=== PATIENT | female | born 1985 | race Caucasian/White ===

== ENCOUNTER 2017-05-02 11:55 | Emergency (ER) | payer BC ==
[2017-05-02] MEDS ORDERED: LORazepam INJ* 2 MG/ML 1 ML VIAL IV PUSH ONE (12:32)
--- NOTE | 2017-05-02 12:43 | ED ---
Seizure - HPI Summary HPI Summary: Patient is an otherwise healthy 31-year-old female with a history of seizures and hypertension presenting to the ED today with a seizure at 9 AM. She was recently increased her dose of lamotrigine from 200 mg twice a day to 300 mg twice a day by her neurologist Dr. Robertson. She recalls the events prior to this seizure, does not recall immediately following. Seizure was witnessed and lasted up approximately 10-15 minutes. She did not hit her head, endorses biting her tongue, but no lesions are found during physical exam. Has been at bedside, stating he has never seen her like this postictally. She denies any other medications and states she is otherwise healthy. He endorses numbness and tingling in bilateral upper and lower extremities. Dr. Anderson called the ED to make us aware of patient this morning. Requested a lamotrigine level and an EEG. She is lethargic on arrival and slurring speech. Decreased motor strength in upper and lower extremities. - History Of Current Complaint Chief Complaint: EDSeizure Time Seen by Provider: 05/02/17 12:04 Hx Obtained From: Patient Onset/Duration: Sudden Onset Severity Of Seizure: Self-Limited Location Of Seizure: All Extremities Character: Other Aggravating Factor(s): Other - Increased recent dose of lamotrigine Alleviating Factor(s): Nothing Associated Signs And Symptoms: Impaired Speech Related History: Medication Compliant - Risk Factors SAH Risk Factors: Negative Meningitis Risk Factors: Negative SDH Risk Factor: Seizures - Allergies/Home Medications Allergies/Adverse Reactions: Allergies Allergy/AdvReac Type Severity Reaction Status Date / Time No Known Allergies Allergy Verified 01/10/12 18:13 Home Medications: Home Medications Lamotrigine (Blue) 05/02/17 [History] PMH/Surg Hx/FS Hx/Imm Hx Previously Healthy: Yes Endocrine/Hematology History: Denies: Hx Diabetes, Hx Thyroid Disease Cardiovascular History: Reports: Hx Hypertension - on labetalol Respiratory History: Denies: Hx Asthma, Hx Chronic Obstructive Pulmonary Disease (COPD) GI History: Denies: Hx Ulcer Psychiatric History: Reports: Hx Anxiety, Hx Depression - Immunization History Hx Pertussis Vaccination: No Immunizations Up to Date: Unable to Obtain/Confirm Infectious Disease History: No Infectious Disease History: Denies: Hx Hepatitis, Hx Human Immunodeficiency Virus (HIV), Traveled Outside the [place] in Last 30 Days - Social History Occupation: Employed Full-time Lives: With Family Alcohol Use: None Hx Substance Use: No Substance Use Type: Reports: None Hx Tobacco Use: No Smoking Status (MU): Never Smoked Tobacco Have You Smoked in the Last Year: No Review of Systems - ROS Summary Review of Systems Summary: Constitutional: The patient denies fever, SALOMON, sweats or chills. HEENT: Head: The patient denies headaches or dizziness. Eyes: The patient endorses blurry vision. The patient denies diplopia, eye pain, eye discharge, photophobia. Throat: The patient denies sore throats or hoarseness. Endorses biting her tongue, but denies bleeding or any obvious lesions. Cardiovascular: The patient denies chest pain, palpitations, syncope, night cramps, or orthostasis. Respiratory: The patient denies cough, sputum production, hemoptysis, dyspnea, wheezing. Gastrointestinal: The patient denies odynophagia, dysphagia, hematemesis, melenemesis. Denies abdominal pain, nausea or vomiting. Denies constipation or diarrhea. Muscles: The patient denies myalgia, strain. Weakness in upper and lower extremities. Joints: The patient denies arthralgia and/or arthritis. Neurologic: The patient denies headache or loss of consciousness. Endorses seizure. Dermatologic: The patient denies hyperpigmentation, rash, or photosensitivity. Constitutional: Negative Negative: Fever, Chills, Fatigue, Skin Diaphoresis Positive: Blurred Vision Negative: Palpitations, Chest Pain Negative: Shortness Of Breath, Cough Genitourinary: Negative Positive: no symptoms reported, see HPI Positive: Weakness, Paresthesia, Slurred Speech Positive: Anxious All Other Systems Reviewed And Are Negative: Yes Physical Exam - Summary Physical Exam Summary: Appearance: WDW, difficult to arouse, ill-appearing Skin: Soft dry skin, no lesions. Nailbeds pink with no cyanosis or clubbing. No petechia noted. Eyes: ALFONSO, EOMI, Conjunctiva pink with no redness or exudates. Mouth: Dentition without lesions. Dry mucosa Neck: Full range of motion. Palpable thyroid. Trachea at midline. No lymphadenopathy. Pulm: Chest symmetrical expansion. No deformities on posterior chest wall. Lungs clear to auscultation and percussion, without adventitious sounds. CV: No JVD. No deformities on anterior chest wall. Heart sounds. RRR. Normal S1 and single S2. No S3, S4, rubs, or murmurs. Carotids 2+ bilaterally without bruits. . exam not performed GI: Bowel sounds WNL in all 4 quadrants. No pain on deep palpation of all 4 quadrants. Musculoskeletal: Flexion and extension of neck without limitations. ROM WNL in all extremities. No deformities noted. Pulses +2 bilaterally. Neuro: Motor strength is 1/5 in upper and lower extremities bilaterally. Alert , but not oriented to time. Oriented to place and name. Pronator drift, graphesthesia not performed. Sensory function decreased in upper and lower extremities. Head rotation, shoulder elevation, tongue movements, muscle of facial expression and mastication not evaluated due to patient's state. Gait not observed. Coordination and strength not tested in upper and lower extremities. Psych: Logical, coherent Triage Information Reviewed: Yes Vital Signs On Initial Exam: Initial Vitals Temp Pulse Resp BP Pulse Ox 98.4 F 103 19 146/91 100 05/02/17 11:56 05/02/17 11:56 05/02/17 11:56 05/02/17 11:56 05/02/17 11:56 Vital Signs Reviewed: Yes Appearance: Positive: Well-Nourished, Ill-Appearing Skin: Positive: Skin Color Reflects Adequate Perfusion Head/Face: Positive: Normal Head/Face Inspection Eyes: Positive: EOMI, ALFONSO, Conjunctiva Clear Neck: Positive: Supple, Nontender, No Lymphadenopathy Respiratory/Lung Sounds: Positive: Clear to Auscultation, Breath Sounds Present Cardiovascular: Positive: Normal, RRR, Pulses are Symmetrical in both Upper and Lower Extremities Diagnostics - Vital Signs Vital Signs Temp Pulse Resp BP Pulse Ox 05/02/17 12:11 93 100 05/02/17 12:09 152/82 05/02/17 11:56 98.4 F 103 19 146/91 100 - Laboratory Result Diagrams: 05/02/17 12:58 05/02/17 12:58 Lab Statement: Any lab studies that have been ordered have been reviewed, and results considered in the medical decision making process. Course/Dx - Course Course Of Treatment: During the course of treatment, the patient is evaluated for post ictal activity. Discussed case with Dr. Feldman who agrees to come see patient. EEG ordered. Labs obtained including lamotrigine level. IV and fluids ordered. According to Dr. Anderson who is sent the patient in, is requesting EEG. EEG obtained and showed no abnormal findings. According to Dr. Feldman, patient is to remain on lamotrigine 300 mg twice a day and follow- up with Dr. Robertson as soon as possible. She is feeling much improved on discharge and voices no concerns at this time. - Diagnoses Provider Diagnoses: Epileptic seizure Is Visit Related: No - Physician Notifications Discussed Care of Patient With: Bill Feldman - patient agrees to come see patient Instructed by Provider To: Have Pt Call For Appt. - Dr. Robertson Discharge - Discharge Plan Condition: Stable Disposition: HOME Patient Education Materials: Lamotrigine (By mouth), Recurrent Seizures in Adults (ED) Referrals: Valeria Merlos MD [Primary Care Provider] - Albina Flynn MD [Medical Doctor] - 1 Week Additional Instructions: please follow up with Dr. Marcelo Feldman recommends you remain on the lamotrigine 300 mg twice daily until follow-up
[2017-05-02] MEDS ORDERED: NS 0.9% 1000 ML* 1,000 ML IV ONE (12:49)
[2017-05-02 13:10] LABS: ABS Basophils 0.1 10^3/ul (0-0.2); ABS Eosinophils 0.2 10^3/ul (0-0.6); ABS Lymphocytes 1.8 10^3/ul (1.0-4.8); ABS Monocytes 0.7 10^3/ul (0-0.8); ABS Neutrophils 5.5 10^3/ul (1.5-7.7); ABS Nucleated RBC 0 10^3/ul; Eosinophil % 2.3 % (0-6); Hematocrit 37 % (35-47); Hemoglobin 11.8 g/dl (12.0-16.0); Lymphocyte % 21.4 % (25-47); Mean Corpuscular HGB Conc 32 g/dl (31-36); Mean Corpuscular Hemoglobin 28 pg (27-31); Mean Corpuscular Volume 86 fL (80-97); Mean Platelet Volume 7 um3 (7.4-10.4); Nucleated Red Blood Cells % 0; Platelet Count 413 10^3/ul (150-450); Red Blood Count 4.25 10^6/ul (4.0-5.4); Red Cell Distribution Width 15 % (10.5-15); White Blood Count 8.2 10^3/ul (3.5-10.8)
[2017-05-02 13:24] LABS: EGFR Non-African American 66.1 (>60)
[2017-05-02 15:41] VITALS: BP 114/70
--- NOTE | 2017-05-02 22:56 | CONS ---
NEUROLOGY CONSULTATION: DATE OF CONSULT: 05/02/17 REFERRING PROVIDER: IZZY Owen LOCATION: She is in the emergency room. CHIEF COMPLAINT: Seizures. HISTORY OF PRESENT ILLNESS: Cydney Landa is a 31-year-old woman with a diagnosis of epilepsy who is followed by Dr. Albina Flynn in our office practice. She had a seizure 2 weeks ago leading to an increase in her lamotrigine dose gradually from 200 mg b.i.d. to 300 mg b.i.d. She just got the 300 mg b.i.d. this past Saturday. She had another seizure this past Saturday and then another episode today. She is accompanied by her . 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 The next thing she knew she was at work and was very confused. She was told that she had had a convulsion. She was brought in to the emergency room. They called our office and Dr. Kandi Anderson was covering. She just had an EEG a little while ago, which I reviewed and this is a normal EEG. She just increased lamotrigine to 300 mg twice per day 3 days prior to this emergency room visit. They had a blood level drawn on Saturday, but I do not have the results of that. Her blood level prior to that was close to 3 or so. She has been noncompliant in the past , but at least for the last several months her was making sure that she has been compliant and that she has not missed any doses. She started having seizures when she was a teenager. She was on Depakote for a while and had some EEG she says were inconclusive and ultimately was taken off anticonvulsants. She reported her history of epilepsy when she was admitted to deliver her youngest child on 09/14/13. Because of that new history, her OB consulted Dr. Flynn who saw her on 09/14/13. She had an EEG, which revealed a generalized burst of slow activity in the theta and delta range without any sharp or spike activity. She was on Keppra for a while, but had significant mood problems and was switched to lamotrigine this past year. She says since her teenage years, she has not got a year without seizures. She said that she was not fully honest with Dr. 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 She says the longest that she goes without seizures is perhaps 3 to 6 months. Her says that she just will suddenly drop. She will exhibit flexion of her arms and generalized shaking. She states she is usually back to normal within 20 minutes after an episode. With the episode today, she did not bite her tongue, but she felt sore all over. She did not lose control of her bladder. PAST MEDICAL HISTORY: Notable for Cardiology evaluation for palpitations and possibly of a "leaky valve." She has otherwise been in good health. MEDICATIONS: At home consists of: 1. Lamotrigine 300 mg b.i.d., just increased a few days ago. 2. Vitamins. 3. Labetalol 100 mg p.o. b.i.d. FAMILY HISTORY: Negative for epilepsy. REVIEW OF SYSTEMS: Negative for recent fevers, cough, sore throats, intestinal problems. She gets headaches after her seizures and has one today, but usually otherwise does not get headaches routinely. Other than lamotrigine, there have been no recent changes in medications. She was evaluated for palpitations, but other than that no history of cardiac disease, no history of diabetes, psychiatric, other endocrine, GI or disease. No recent weight loss to speak of. PHYSICAL EXAMINATION: She is well nourished and well hydrated. Blood pressure is 140/100, heart rate in the 80s and regular, temperature 98.4, respiratory rate is 19, oxygen saturation 100% on room air. Lungs are clear. Heart is in a regular rate and rhythm without murmurs. There are no cervical bruits. Oral mucosa is moist and there is no oral or tongue trauma. Neurological exam; pupils, fundi, and eye movements are normal. Visual atkins are full to confrontation. Facial musculature is symmetric. Tongue protrudes in the midline and speech is clear. Hearing is intact. Facial sensation is reported as subjective decreased light touch on the right side of the face. Pin discrimination is said to be decreased in the right as well. On sensory exam of the limbs, she reports decreased light touch and pin subjectively in the left side of the arm and leg. Sensory thresholds seem intact. Motor exam reveals generalized asthenia, but normal strength and tone in the limbs proximally and distally. Reflexes are hypoactive, but present and symmetric. Plantars are flexor bilaterally. Finger to nose is slow, but accurate bilaterally. There is no tremor. Finger taps are slow bilaterally, but otherwise normal. She seems a bit tired, but is oriented and able to give a good history other than for the time around the seizure. Language is fluent. LABORATORY DATA: Includes a normal chemistry profile today other than a nonfasting glucose of 105. Creatine kinase today is 87. CBC today is normal other than a borderline low hemoglobin of 11.8. IMPRESSION AND PLAN: Impression is apparently medically refractory epilepsy, psychogenic seizures remains a possibility. It sounds like her EEG was not definitive. She just had her lamotrigine increased on Saturday and had a blood level drawn today, but it will not come back today. I do not recommend any changes today, but she may need either a second anticonvulsant or further diagnostic studies. For now, she will continue lamotrigine 300 mg twice per day. She does not drive. I will try to speak with Dr. Flynn and have her contact the patient regarding the next step. [id number]/[facility] #: [id number] DMITRY
--- NOTE | 2017-05-03 11:17 | EEG ---
CC: Dr. Flynn ELECTROENCEPHALOGRAPHY: DATE OF STUDY: 05/02/17 LOCATION: She is in emergency room bed 19 REFERRING PROVIDER: Bill Feldman MD. CHIEF COMPLAINT: Seizure today, history of epilepsy since teens. MEDICATIONS: Include, 1. Lamotrigine 300 mg b.i.d. 2. Lorazepam. REPORT: This 16-channel EEG is remarkable for background rhythms at the onset of tracing consistent of a well formed alpha rhythm in the posterior derivations at about 9 to 9-1/2 cycles per second, whi ch is symmetric and suppressed by eye opening. Moderate voltage beta rhythms are seen bifrontally. The patient is awake. Eye movement artifact is fairly frequent and occasional muscle artifact is not ed as well. Activation procedures are not attempted. The patient is not drowsy or asleep during the recording. There are no focal, lateralized, or epileptiform abnormalities. INTERPRETATION: Normal awake EEG. [id number]/[facility] #: [id number]
== END 2017-05-02 15:42 | disposition home or self-care (01) ==
LOC: ED 11:55
DX: G40.909 Epilepsy, unspecified, not intractable, without status epilepticus (principal); I10 Essential (primary) hypertension
CPT/HCPCS: 36415; 80053; 80175; 80307; 82550; 85025; 85652; 95816; 96360; 99284

== ENCOUNTER 2018-01-30 01:07 | Observation (INO) | payer BC ==
[2018-01-30] MEDS ORDERED: Ketorolac INJ* 30 MG/ML 1 ML VIAL IV PUSH ONE (01:58)
[2018-01-30] MEDS ORDERED: NS 0.9% 1000 ML* 1,000 ML IV ONE (01:58)
[2018-01-30] MEDS ORDERED: Albuterol/Ipratropium NEB.SOL* Albuterol 2.5 MG/Ipratropium 0.5 MG 3 ML INH ONE (01:59)
[2018-01-30] MEDS ORDERED: Albuterol 2.5 MG/3 ML NEB.SOL* (0.083%) INH ONE (01:59)
[2018-01-30 02:43] LABS: ABS Basophils 0.1 10^3/ul (0-0.2); ABS Eosinophils 0.2 10^3/ul (0-0.6); ABS Lymphocytes 1.2 10^3/ul (1.0-4.8); ABS Monocytes 0.3 10^3/ul (0-0.8); ABS Neutrophils 12.1 10^3/ul (1.5-7.7); ABS Nucleated RBC 0 10^3/ul; Eosinophil % 1.6 % (0-6); Hematocrit 38 % (35-47); Hemoglobin 12.3 g/dl (12.0-16.0); Lymphocyte % 8.9 % (25-47); Mean Corpuscular HGB Conc 32 g/dl (31-36); Mean Corpuscular Hemoglobin 28 pg (27-31); Mean Corpuscular Volume 86 fL (80-97); Mean Platelet Volume 6.9 fL (7.4-10.4); Nucleated Red Blood Cells % 0; Platelet Count 500 10^3/ul (150-450); Red Blood Count 4.44 10^6/ul (4.00-5.40); Red Cell Distribution Width 15 % (10.5-15)
[2018-01-30 02:51] LABS: INR 0.98 (0.77-1.02)
[2018-01-30 03:00] LABS: EGFR Non-African American 67.3 (>60)
[2018-01-30] MEDS ORDERED: Albuterol 2.5 MG/3 ML NEB.SOL* (0.083%) INH PRN ×2 (03:32→10:30)
[2018-01-30] MEDS ORDERED: ALPRAZolam TAB* 0.5 MG PO PRN (03:46)
[2018-01-30] MEDS ORDERED: Ibuprofen TAB* 200 MG PO PRN (03:46)
[2018-01-30] MEDS ORDERED: predniSONE TAB* 20 MG PO ONE (03:50)
--- NOTE | 2018-01-30 03:51 | ADMNOTE ---
Subjective Date of Service: 01/30/18 Interval History: code status full this is a h/p for admission hpi this is a 32 yr old wf with ? prob asthma hx but never gets diagnosed prior was brought in by mom due to her overall respiratory status. she was dxd with pna 3 weeks ago was treated with z pack and steroid ---> felt better but has been getting worse for the past weekend finally decided to seek medical help at urgent yesterday ---> d/cd home and she drove herself home ---> mom saw her and decided to bring her in. she was found to have low grade temp ( did not measure at [facility] ) increased chang and diffuse wheezing for two days . 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 + asthma Review of Systems - Measurements Intake and Output: Intake and Output Last 24 Hours 01/27/18 01/28/18 01/29/18 01/30/18 06:59 06:59 06:59 06:59 Intake Total 1000 Balance 1000 Weight 235 lb Intake: IV Fluids 1000 pertinent as per hpi Objective Active Medications: Albuterol (Ventolin 2.5 Mg/3 Ml Neb.Ayana*) 2.5 mg INH [id number] AWAKE PRN PRN Reason: sob/wheezing Alprazolam (Xanax Tab*) 1 mg PO DAILY PRN PRN Reason: ANXIETY Sodium Chloride (Ns 0.9% 1000 Ml*) 1,000 mls @ 100 mls/hr IV PER RATE TOMMY Ibuprofen (Advil Tab*) 400 mg PO Q6HR PRN PRN Reason: PAIN Levofloxacin (Levaquin Tab*) 750 mg PO Q24H TOMMY Non-Formulary Medication (Labetalol Hcl) 100 mg PO BID TOMMY Non-Formulary Medication (Lamotrigine (Blue)) 600 mg PO DAILY TOMMY Prednisone (Deltasone Tab*) 40 mg PO ONCE ONE Stop: 01/30/18 03:51 Vital Signs - 8 hr 01/30/18 01/30/1801/30/18 01:09 02:08 02:10 Temperature 97.9 F Pulse Rate 115 114 104 Respiratory 20 20 Rate Blood Pressure 151/91 146/91 (mmHg) O2 Sat by Pulse 92 94 97 Oximetry 01/30/18 01/30/18 01/30/18 02:15 02:29 02:35 Temperature Pulse Rate 102 Respiratory 20 Rate Blood Pressure 111/73 (mmHg) O2 Sat by Pulse 95 91 Oximetry 01/30/18 01/30/18 03:00 03:05 Temperature Pulse Rate 103 111 Respiratory Rate Blood Pressure 139/76 (mmHg) O2 Sat by Pulse 90 92 Oximetry Oxygen Devices in Use Now: Nasal Cannula Appearance: nad Eyes: No Scleral Icterus, PERRLA Ears/Nose/Mouth/Throat: NL Teeth, Lips, Gums, Clear Oropharnyx, Mucous Membranes Moist Neck: NL Appearance and Movements; NL JVP, Trachea Midline, No Thyroid Enlargement, Masses Respiratory: Symmetrical Chest Expansion and Respiratory Effort, - - diffuse wheezing Cardiovascular: NL Sounds; No Murmurs; No JVD, RRR Abdominal: NL Sounds; No Tenderness; No Distention Extremities: No Edema, No Clubbing, Cyanosis Skin: No Rash or Ulcers Neurological: Alert and Oriented x 3, NL Sensation, NL Muscle Strength and Tone Result Diagrams: 01/30/18 05:44 01/30/18 05:44 Microbiology and Other Data: Microbiology 01/30/18 02:30 Influenza Types A,B Antigen - Final Nasal Specimen received for Influenza A/B Molecular testing Assess/Plan/Problems-Billing Assessment: this is a 32 yr old wf with prob hx of asthma fhx of asthma not feeling well for two days with increased sob/coughing/sputum production. pt was recently treated 3 weeks ago for pna with 5 days hx z pack and steroid taper. initial chest x ray on 01/29 showed persistant rll patchy opacity - Patient Problems (1) RLL pneumonia Status: Acute Code(s): J18.1 - LOBAR PNEUMONIA, UNSPECIFIED ORGANISM SNOMED Code(s): 850063289 Comment: A. Started PO levaquin as an outpatient. Finished zpack Plan Continue 3 more days for total of 7 Levaquin Change to scheduled Albuterol, and prn Duonebs and Albuterol Prednisone 40 mg PO QD (2) Acute respiratory distress Status: Acute Code(s): R06.03 - ACUTE RESPIRATORY DISTRESS SNOMED Code(s): 971948242 Comment: due to rll pna despite treatment done two weeks ago but was only treated with z pack for pna also complicated with prob ashtma attack never was dxd but mom + asthma abx resp tx oxygen support (3) Asthma exacerbation Status: Acute Code(s): J45.901 - UNSPECIFIED ASTHMA WITH (ACUTE) EXACERBATION SNOMED Code(s): 506839884 Comment: A. Exercise induced as a child. Plan As above Will also get CTA to rule out any other pathology Consider pulmonology consult (4) SIRS (systemic inflammatory response syndrome) Status: Acute Code(s): R65.10 - SIRS OF NON-INFECTIOUS ORIGIN W/O ACUTE ORGAN DYSFUNCTION SNOMED Code(s): 894781275 Comment: no abx was given despite chest x ray showed pna started with levauqin ck sputum study (5) Thrombocytosis Status: Acute Comment: not sure it is reactive due to pna and acute ashtma excerbation and hypoxia vs primary no thrombotic symptoms at this point moniter plat count (6) Tachycardia Status: Acute Code(s): R00.0 - TACHYCARDIA, UNSPECIFIED SNOMED Code(s): 1032735 Comment: this is could be due to sirs and albuterol tx will use xopenex ivf tele (7) Lactic acidosis Status: Acute Code(s): E87.2 - ACIDOSIS SNOMED Code(s): 24552816 Comment: this is related to pna will recycle her lactic q 4 until normal
--- NOTE | 2018-01-30 04:15 | ED ---
Shortness of Breath - HPI Summary HPI Summary: A 32 y/o female presents to the ED with a CC PNA since 01/20/2018. She was seen at [facility]. She states that she "can't breathe" and that she has been taking Prednisone since 01/20/2018 along with using a nebulizer and inhaler. She also c/o N/V and an intermittent fever. She states that her abx have recently changed. - History of Current Complaint Chief Complaint: EDShortnessOfBreath Time Seen by Provider: 01/30/18 01:49 Hx Obtained From: Patient Onset/Duration: Sudden Onset, Lasting Days, Still Present Timing: Constant - Allergy/Home Medications Allergies/Adverse Reactions: Allergies Allergy/AdvReac Type Severity Reaction Status Date / Time No Known Allergies Allergy Verified 01/30/18 01:13 Home Medications: Home Medications ALPRAZolam TAB* [Xanax TAB*] 1 mg PO DAILY PRN 01/30/18 [History Confirmed 01/30] PMH/Surg Hx/FS Hx/Imm Hx Endocrine/Hematology History: Denies: Hx Diabetes, Hx Thyroid Disease Cardiovascular History: Reports: Hx Hypertension - on labetalol Denies: Hx Pacemaker/ICD Respiratory History: Denies: Hx Asthma, Hx Chronic Obstructive Pulmonary Disease (COPD) GI History: Denies: Hx Ulcer History: Denies: Hx Renal Disease Sensory History: Denies: Hx Hearing Aid Psychiatric History: Reports: Hx Anxiety, Hx Depression Denies: Hx Panic Disorder - Surgical History Surgery Procedure, Year, and Place: GALLBLADDER;. CSECTION; Infectious Disease History: No Infectious Disease History: Denies: Hx Hepatitis, Hx Human Immunodeficiency Virus (HIV), Traveled Outside the [place] in Last 30 Days - Family History Known Family History: Negative: Blood Disorder - Social History Alcohol Use: None Hx Substance Use: No Substance Use Type: Reports: None Hx Tobacco Use: No Smoking Status (MU): Never Smoked Tobacco Have You Smoked in the Last Year: No Review of Systems Positive: Fever Respiratory: Other - Pos: PNA, "can't breathe" Positive: Shortness Of Breath Positive: Vomiting, Nausea All Other Systems Reviewed And Are Negative: Yes Physical Exam - Summary Physical Exam Summary: VITAL SIGNS: Reviewed. GENERAL: Patient is a well-developed and nourished FEMALE who is lying comfortable in the stretcher. Patient is not in any acute respiratory distress. HEAD AND FACE: No signs of trauma. No ecchymosis, hematomas or skull depressions. No sinus tenderness. EYES: PERRLA, EOMI x 2, No injected conjunctiva, no nystagmus. EARS: Hearing grossly intact. Ear canals and tympanic membranes are within normal limits. MOUTH: Oropharynx within normal limits. NECK: Supple, trachea is midline, no adenopathy, no JVD, no carotid bruit, no c- spine tenderness, neck with full ROM. CHEST: Symmetric, no tenderness at palpation LUNGS: Decreased breath sounds bilaterally, bilateral basal rales CVS: Regular rate and rhythm, S1 and S2 present, no murmurs or gallops appreciated. ABDOMEN: Soft, non-tender. No signs of distention. No rebound no guarding, and no masses palpated. Bowel sounds are normal. EXTREMITIES: FROM in all major joints, no edema, no cyanosis or clubbing. NEURO: Alert and oriented x 3. No acute neurological deficits. Speech is normal and follows commands. SKIN: Dry and warm Triage Information Reviewed: Yes Vital Signs On Initial Exam: Initial Vitals Temp Pulse Resp BP Pulse Ox 97.9 F 115 20 151/91 92 01/30/18 01:09 01/30/18 01:09 01/30/18 01:09 01/30/18 01:09 01/30/18 01:09 Vital Signs Reviewed: Yes Diagnostics - Vital Signs Vital Signs Temp Pulse Resp BP Pulse Ox 01/30/18 03:05 111 139/76 92 01/30/18 03:00 103 90 01/30/18 02:35 111/73 01/30/18 02:29 91 01/30/18 02:15 102 20 95 01/30/18 02:10 104 20 97 01/30/18 02:08 114 146/91 94 01/30/18 01:09 97.9 F 115 20 151/91 92 - Laboratory Lab Results: Lab Results 01/30/18 01/30/18 01/30/18 Range/Units 02:15 02:15 02:15 WBC 14.0 H (3.5-10.8) 10^3/ul RBC 4.44 (4.00-5.40) 10^6/ul Hgb 12.3 (12.0-16.0) g/dl Hct 38 (35-47) % MCV 86 (80-97) fL MCH 28 (27-31) pg MCHC 32 (31-36) g/dl RDW 15 (10.5-15) % Plt Count 500 H (150-450) 10^3/ul MPV 6.9 L (7.4-10.4) fL Neut % (Auto) 86.4 H (38-83) % Lymph % (Auto) 8.9 L (25-47) % [place] % (Auto) 2.4 (0-7) % Eos % (Auto) 1.6 (0-6) % Baso % (Auto) 0.7 (0-2) % Absolute Neuts (auto) 12.1 H (1.5-7.7) 10^3/ul Absolute Lymphs (auto) 1.2 (1.0-4.8) 10^3/ul Absolute Monos (auto) 0.3 (0-0.8) 10^3/ul Absolute Eos (auto) 0.2 (0-0.6) 10^3/ul Absolute Basos (auto) 0.1 (0-0.2) 10^3/ul Absolute Nucleated RBC 0 10^3/ul Nucleated RBC % 0 INR (Anticoag Therapy) 0.98 (0.77-1.02) APTT 31.1 (26.0-36.3) seconds Sodium 138 (135-145) mmol/L Potassium 4.0 (3.5-5.0) mmol/L Chloride 105 (101-111) mmol/L Carbon Dioxide 23 (22-32) mmol/L Anion Gap 10 (2-11) mmol/L BUN 11 (6-24) mg/dL Creatinine 0.95 (0.51-0.95) mg/dL Est GFR ( Amer) 81.5 (>60) Est GFR (Non-Af Amer) 67.3 (>60) BUN/Creatinine Ratio 11.6 (8-20) Glucose 128 H (70-100) mg/dL Lactic Acid (0.5-2.0) mmol/L Calcium 9.5 (8.6-10.3) mg/dL Total Bilirubin 0.30 (0.2-1.0) mg/dL AST 15 (13-39) U/L ALT 15 (7-52) U/L Alkaline Phosphatase 111 H (34-104) U/L C-Reactive Protein 14.56 H (<8.01) mg/L Total Protein 7.8 (6.4-8.9) g/dL Albumin 4.4 (3.2-5.2) g/dL Globulin 3.4 (2-4) g/dL Albumin/Globulin Ratio 1.3 (1-3) Beta HCG, Quant < 0.60 mIU/mL Influenza A (Rapid) (Negative) Influenza B (Rapid) (Negative) 01/30/18 01/30/18 Range/Units 02:15 02:48 WBC (3.5-10.8) 10^3/ul RBC (4.00-5.40) 10^6/ul Hgb (12.0-16.0) g/dl Hct (35-47) % MCV (80-97) fL MCH (27-31) pg MCHC (31-36) g/dl RDW (10.5-15) % Plt Count (150-450) 10^3/ul MPV (7.4-10.4) fL Neut % (Auto) (38-83) % Lymph % (Auto) (25-47) % [place] % (Auto) (0-7) % Eos % (Auto) (0-6) % Baso % (Auto) (0-2) % Absolute Neuts (auto) (1.5-7.7) 10^3/ul Absolute Lymphs (auto) (1.0-4.8) 10^3/ul Absolute Monos (auto) (0-0.8) 10^3/ul Absolute Eos (auto) (0-0.6) 10^3/ul Absolute Basos (auto) (0-0.2) 10^3/ul Absolute Nucleated RBC 10^3/ul Nucleated RBC % INR (Anticoag Therapy) (0.77-1.02) APTT (26.0-36.3) seconds Sodium (135-145) mmol/L Potassium (3.5-5.0) mmol/L Chloride (101-111) mmol/L Carbon Dioxide (22-32) mmol/L Anion Gap (2-11) mmol/L BUN (6-24) mg/dL Creatinine (0.51-0.95) mg/dL Est GFR ( Amer) (>60) Est GFR (Non-Af Amer) (>60) BUN/Creatinine Ratio (8-20) Glucose (70-100) mg/dL Lactic Acid 1.9 (0.5-2.0) mmol/L Calcium (8.6-10.3) mg/dL Total Bilirubin (0.2-1.0) mg/dL AST (13-39) U/L ALT (7-52) U/L Alkaline Phosphatase (34-104) U/L C-Reactive Protein (<8.01) mg/L Total Protein (6.4-8.9) g/dL Albumin (3.2-5.2) g/dL Globulin (2-4) g/dL Albumin/Globulin Ratio (1-3) Beta HCG, Quant mIU/mL Influenza A (Rapid) Negative (Negative) Influenza B (Rapid) Negative (Negative) Result Diagrams: 01/30/18 05:44 01/30/18 05:44 Lab Statement: Any lab studies that have been ordered have been reviewed, and results considered in the medical decision making process. - Radiology CXR Radiology Interpretation Completed By: ED Physician - was taken at [facility], revealed bilateral basal infiltrate. Pending official report. Re-Evaluation - Re-Evaluation First Eval Re-Evaluation Time: 02:05 Change: Unchanged Comment: Discussed results of CXR. Course/Dx - Course Course Of Treatment: A 32 y/o female presents to the ED with a CC PNA since . Her PE revealed decreased breath sounds bilaterally and bilateral basal rales. Her CXR showed bilateral basal infiltrate. Dx: bilateral PNA. She will be admitted to Dr. Beckham, hospitalist. - Diagnoses Provider Diagnoses: Bilateral pneumonia - Physician Notifications Discussed Care of Patient With: Constanza Beckham Time Discussed With Above Provider: 03:00 Instructed by Provider To: Admit As Inpatient Discharge - Sign-Out/Discharge Documenting (check all that apply): Patient Departure - Admit - Discharge Plan Condition: Fair Disposition: ADMITTED TO [facility] - Billing Disposition and Condition Condition: FAIR Disposition: Admitted to [facility] - Attestation Statements Document Initiated by Scribe: Yes Documenting Scribe: Andrew Ventura Provider For Whom Scribe is Documenting (Include Credential): Sylvester Elfar, MD Scribe Attestation: I, Andrew Ventura, scribed for Sylvester Iraheta MD on 01/30/18 at 2358. Scribe Documentation Reviewed: Yes Provider Attestation: The documentation as recorded by the scribe, Andrew Ventura accurately reflects the service I personally performed and the decisions made by me, Sylvester Iraheta MD
[2018-01-30] MEDS: Levofloxacin TAB* 250 MG PO SCH (04:37)
[2018-01-30 05:59] LABS: ABS Basophils 0.1 10^3/ul (0-0.2); ABS Eosinophils 0 10^3/ul (0-0.6); ABS Lymphocytes 0.9 10^3/ul (1.0-4.8); ABS Monocytes 0.1 10^3/ul (0-0.8); ABS Nucleated RBC 0 10^3/ul; Eosinophil % 0.2 % (0-6); Hematocrit 35 % (35-47); Hemoglobin 11.2 g/dl (12.0-16.0); Lymphocyte % 6.8 % (25-47); Mean Corpuscular HGB Conc 32 g/dl (31-36); Mean Corpuscular Hemoglobin 27 pg (27-31); Mean Corpuscular Volume 86 fL (80-97); Mean Platelet Volume 6.9 fL (7.4-10.4); Nucleated Red Blood Cells % 0; Platelet Count 501 10^3/ul (150-450); Red Blood Count 4.08 10^6/ul (4.00-5.40); Red Cell Distribution Width 15 % (10.5-15); White Blood Count 13.1 10^3/ul (3.5-10.8)
[2018-01-30 06:19] LABS: EGFR Non-African American 79.8 (>60)
[2018-01-30] MEDS: NS 0.9% 1000 ML* 1,000 ML IV SCH ×2 (06:31→23:21)
[2018-01-30] MEDS ORDERED: Labetalol TAB* 100 MG PO SCH (09:00)
[2018-01-30] MEDS: predniSONE TAB* 10 MG PO SCH (09:07)
[2018-01-30] MEDS: lamoTRIgine TAB(*) 100 MG PO SCH ×2 (09:07→20:45)
[2018-01-30] MEDS ORDERED: Benzocaine/Menthol LOZ* 1 LOZENGE PO PRN (09:20)
[2018-01-30] MEDS ORDERED: Albuterol/Ipratropium NEB.SOL* Albuterol 2.5 MG/Ipratropium 0.5 MG 3 ML INH PRN (10:30)
[2018-01-30] MEDS: guaiFENesin ER TAB 600 MG PO SCH ×2 (10:36→20:46)
--- NOTE | 2018-01-30 10:44 | PN ---
Subjective Date of Service: 01/30/18 Interval History: Patient admitted last evening for SOB and cough. Completed a full zpack course and started Levaquin on 01/25. Was also on low dose prednisone as an outpatient prior to being admitted. Still very SOB with a dry cough. No Hx of smoking or second hand exposure. No environmental exposure Objective Active Medications: Albuterol (Ventolin 2.5 Mg/3 Ml Neb.Ayana*) 2.5 mg INH [id number] AWAKE TOMMY Albuterol (Ventolin 2.5 Mg/3 Ml Neb.Ayana*) 2.5 mg INH Q2H PRN PRN Reason: SOB/WHEEZING Albuterol/Ipratropium (Duoneb (Albuterol 2.5 Mg/Ipratropium 0.5 Mg)) 1 neb INH Q4H PRN PRN Reason: SOB/WHEEZING Alprazolam (Xanax Tab*) 1 mg PO DAILY PRN PRN Reason: ANXIETY Last Admin: 01/30/18 04:36 Dose: 1 mg Guaifenesin (Mucinex*) 600 mg PO BID [facility] Last Admin: 01/30/18 10:36 Dose: 600 mg Sodium Chloride (Ns 0.9% 1000 Ml*) 1,000 mls @ 100 mls/hr IV PER RATE [facility] Last Admin: 01/30/18 06:31 Dose: 100 mls/hr Ibuprofen (Advil Tab*) 400 mg PO Q6HR PRN PRN Reason: PAIN Lamotrigine (Lamictal Tab(*)) 300 mg PO BID [facility] Last Admin: 01/30/18 09:07 Dose: 300 mg Levofloxacin (Levaquin Tab*) 750 mg PO Q24H TOMMY Stop: 02/02/18 03:59 Last Admin: 01/30/18 04:37 Dose: 750 mg Prednisone (Deltasone Tab*) 40 mg PO DAILY [facility]; Taper Stop: 02/07/18 08:59 Last Admin: 01/30/18 09:07 Dose: 40 mg Throat Lozenges (Chloraseptic Sandi*) 1 sandi PO Q6H PRN PRN Reason: SORE THROAT Vital Signs - 8 hr 01/30/18 01/30/18 01/30/18 03:00 03:05 03:35 Temperature Pulse Rate 103 111 101 Respiratory Rate Blood Pressure 139/76 118/73 (mmHg) O2 Sat by Pulse 90 92 93 Oximetry 01/30/18 01/30/18 01/30/18 03:54 04:05 04:36 Temperature 98.1 F 97.7 F Pulse Rate 105 105 Respiratory 20 20 22 Rate Blood Pressure 139/76 137/78 (mmHg) O2 Sat by Pulse 93 92 Oximetry 01/30/18 01/30/18 05:30 09:28 Temperature 97.7 F Pulse Rate 105 Respiratory 18 Rate Blood Pressure 137/78 (mmHg) O2 Sat by Pulse 92 92 Oximetry Oxygen Devices in Use Now: Nasal Cannula Ears/Nose/Mouth/Throat: Mucous Membranes Moist Neck: Trachea Midline Respiratory: - - diminished breath sounds. B/L expiratory wheezing/rhonchorous breath sounds Cardiovascular: NL Sounds; No Murmurs; No JVD, RRR Abdominal: NL Sounds; No Tenderness; No Distention, No Hepatosplenomegaly Extremities: No Edema Neurological: Alert and Oriented x 3 Result Diagrams: 01/30/18 05:44 01/30/18 05:44 Additional Lab and Data: Lab Results 01/30/18 01/30/18 01/30/18 Range/Units 02:15 02:15 02:15 WBC 14.0 H (3.5-10.8) 10^3/ul RBC 4.44 (4.00-5.40) 10^6/ul Hgb 12.3 (12.0-16.0) g/dl Hct 38 (35-47) % MCV 86 (80-97) fL MCH 28 (27-31) pg MCHC 32 (31-36) g/dl RDW 15 (10.5-15) % Plt Count 500 H (150-450) 10^3/ul MPV 6.9 L (7.4-10.4) fL Neut % (Auto) 86.4 H (38-83) % Lymph % (Auto) 8.9 L (25-47) % [place] % (Auto) 2.4 (0-7) % Eos % (Auto) 1.6 (0-6) % Baso % (Auto) 0.7 (0-2) % Absolute Neuts (auto) 12.1 H (1.5-7.7) 10^3/ul Absolute Lymphs (auto) 1.2 (1.0-4.8) 10^3/ul Absolute Monos (auto) 0.3 (0-0.8) 10^3/ul Absolute Eos (auto) 0.2 (0-0.6) 10^3/ul Absolute Basos (auto) 0.1 (0-0.2) 10^3/ul Absolute Nucleated RBC 0 10^3/ul Nucleated RBC % 0 INR (Anticoag Therapy) 0.98 (0.77-1.02) APTT 31.1 (26.0-36.3) seconds Sodium 138 (135-145) mmol/L Potassium 4.0 (3.5-5.0) mmol/L Chloride 105 (101-111) mmol/L Carbon Dioxide 23 (22-32) mmol/L Anion Gap 10 (2-11) mmol/L BUN 11 (6-24) mg/dL Creatinine 0.95 (0.51-0.95) mg/dL Est GFR ( Amer) 81.5 (>60) Est GFR (Non-Af Amer) 67.3 (>60) BUN/Creatinine Ratio 11.6 (8-20) Glucose 128 H (70-100) mg/dL Lactic Acid (0.5-2.0) mmol/L Calcium 9.5 (8.6-10.3) mg/dL Total Bilirubin 0.30 (0.2-1.0) mg/dL AST 15 (13-39) U/L ALT 15 (7-52) U/L Alkaline Phosphatase 111 H (34-104) U/L C-Reactive Protein 14.56 H (<8.01) mg/L Total Protein 7.8 (6.4-8.9) g/dL Albumin 4.4 (3.2-5.2) g/dL Globulin 3.4 (2-4) g/dL Albumin/Globulin Ratio 1.3 (1-3) Beta HCG, Quant < 0.60 mIU/mL Influenza A (Rapid) (Negative) Influenza B (Rapid) (Negative) 01/30/18 01/30/18 Range/Units 02:15 02:48 WBC (3.5-10.8) 10^3/ul RBC (4.00-5.40) 10^6/ul Hgb (12.0-16.0) g/dl Hct (35-47) % MCV (80-97) fL MCH (27-31) pg MCHC (31-36) g/dl RDW (10.5-15) % Plt Count (150-450) 10^3/ul MPV (7.4-10.4) fL Neut % (Auto) (38-83) % Lymph % (Auto) (25-47) % [place] % (Auto) (0-7) % Eos % (Auto) (0-6) % Baso % (Auto) (0-2) % Absolute Neuts (auto) (1.5-7.7) 10^3/ul Absolute Lymphs (auto) (1.0-4.8) 10^3/ul Absolute Monos (auto) (0-0.8) 10^3/ul Absolute Eos (auto) (0-0.6) 10^3/ul Absolute Basos (auto) (0-0.2) 10^3/ul Absolute Nucleated RBC 10^3/ul Nucleated RBC % INR (Anticoag Therapy) (0.77-1.02) APTT (26.0-36.3) seconds Sodium (135-145) mmol/L Potassium (3.5-5.0) mmol/L Chloride (101-111) mmol/L Carbon Dioxide (22-32) mmol/L Anion Gap (2-11) mmol/L BUN (6-24) mg/dL Creatinine (0.51-0.95) mg/dL Est GFR ( Amer) (>60) Est GFR (Non-Af Amer) (>60) BUN/Creatinine Ratio (8-20) Glucose (70-100) mg/dL Lactic Acid 1.9 (0.5-2.0) mmol/L Calcium (8.6-10.3) mg/dL Total Bilirubin (0.2-1.0) mg/dL AST (13-39) U/L ALT (7-52) U/L Alkaline Phosphatase (34-104) U/L C-Reactive Protein (<8.01) mg/L Total Protein (6.4-8.9) g/dL Albumin (3.2-5.2) g/dL Globulin (2-4) g/dL Albumin/Globulin Ratio (1-3) Beta HCG, Quant mIU/mL Influenza A (Rapid) Negative (Negative) Influenza B (Rapid) Negative (Negative) Microbiology and Other Data: Microbiology 01/30/18 02:30 Influenza Types A,B Antigen - Final Nasal Specimen received for Influenza A/B Molecular testing Assess/Plan/Problems-Billing Assessment: This is a 32 yr old with a 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 Started PO levaquin as an outpatient. Finished zpack Plan Continue 3 more days for total of 7 Levaquin Change to scheduled Albuterol, and prn Duonebs and Albuterol Prednisone 40 mg PO QD (2) Hypertension Current Visit: Yes Status: Acute Code(s): I10 - ESSENTIAL (PRIMARY) HYPERTENSION SNOMED Code(s): 60974197 Comment: A/P On labetolol Will hold this for now as it may be worsening her bronchospasm Plan Monitor may need alternative agent (3) Asthma exacerbation Current Visit: Yes Status: Acute Code(s): J45.901 - UNSPECIFIED ASTHMA WITH (ACUTE) EXACERBATION SNOMED Code(s): 831501182 Comment: A. Exercise induced as a child. Plan As above Will also get CTA to rule out any other pathology Consider pulmonology consult (4) DVT prophylaxis Current Visit: Yes Status: Acute Code(s): NUG5547 - SNOMED Code(s): 677427531 Comment: Low risk - Encourage ambulation SCDs for now (5) Seizure disorder Current Visit: Yes Status: Acute Code(s): G40.909 - EPILEPSY, UNSP, NOT INTRACTABLE, WITHOUT STATUS EPILEPTICUS SNOMED Code(s): 499862229 Comment: A/P stable continue lamotrigine (6) Full code status Current Visit: Yes Status: Acute Code(s): Z78.9 - OTHER SPECIFIED HEALTH STATUS SNOMED Code(s): 526565504 Status and Disposition: Hypoxic respiratory failure - goal wean oxygen
[2018-01-30] MEDS ORDERED: Iohexol 350* (CONTRAST) 500 ML MDV IV ONE (11:08)
[2018-01-30] MEDS: Albuterol 2.5 MG/3 ML NEB.SOL* (0.083%) INH SCH ×4 (11:26→23:13)
[2018-01-30] MEDS ORDERED: diPHENhydraMINE PO* 25 MG PO PRN (20:51)
[2018-01-31] MEDS: Albuterol 2.5 MG/3 ML NEB.SOL* (0.083%) INH SCH (03:32)
[2018-01-31] MEDS: Levofloxacin TAB* 250 MG PO SCH (03:48)
[2018-01-31] MEDS ORDERED: Albuterol 2.5 MG/3 ML NEB.SOL* (0.083%) INH SCH (07:00)
[2018-01-31 07:43] VITALS: BP 132/72
[2018-01-31] MEDS: predniSONE TAB* 10 MG PO SCH (08:04)
[2018-01-31] MEDS: lamoTRIgine TAB(*) 100 MG PO SCH (08:04)
[2018-01-31] MEDS: guaiFENesin ER TAB 600 MG PO SCH (08:04)
--- NOTE | 2018-02-01 07:41 | DS ---
AMENDED REPORT NOW INCLUDES COSIGNER DESIGNATION CC: Kena Willis NP * DISCHARGE SUMMARY: DATE OF ADMISSION: 01/30/18 DATE OF DISCHARGE: 01/31/18 PRIMARY CARE PROVIDER: Kena Willis NP. ATTENDING PHYSICIAN: Brice Sepulveda MD * (dictated by Sarah Reyes NP). PRIMARY DIAGNOSES: 1. Right lower lobe pneumonia. 2. Asthma exacerbation. SECONDARY DIAGNOSES: 1. Hypertension. 2. Seizure disorder. STUDIES WHILE IN THE HOSPITAL: 1. Chest, thorax CTA on 01/30/18 reads as limited study. Within the limitations of the study, there is no pulmonary arterial filling defect to suggest pulmonary embolism. Hilar lymphadenopathy. HISTORY OF PRESENT ILLNESS AND HOSPITAL COURSE: Ms. North is a 32-year- old female with past medical history of asthma, hypertension, and seizure disorder, who presented to the emergency room on 01/30/18 with complaints of worsening shortness of breath and cough. Please see the history and physical by Dr. Beckham for a complete summary of the events leading up to this hospitalization ; but in short, the patient was diagnosed with pneumonia approximately 3 weeks ago and was treated with a Z-Francisco and steroids. She had been feeling better, but then progressively felt worse over the weekend. In the emergency room, she was noted to have a low grade temp and an elevated white blood count as well as an elevated lactic acid. She was admitted by the hospitalist service and placed on Levaquin, albuterol nebulizers, and prednisone. The patient was requiring supplemental oxygen, when she first arrived, which was weaned on 01/30/18. Her labetalol was held as there was slight concern that it was worsening her bronchospasm. A pulmonary embolism was ruled out as noted above. On the day of discharge, the patient reports feeling well. She feels as though her shortness of breath and cough are significantly reduced and she is anxious to be discharged. She continues to have fine crackles to the right lower lobe, otherwise clear throughout and saturating well on room air. She is able to ambulate without dyspnea. Ms. North is stable for discharge today. Vital signs are as follows. Temp 98.0, heart rate 93, respiratory rate 16, oxygen saturation 96% on room air , blood pressure 132/72. DISCHARGE MEDICATIONS: New home medications: 1. Levofloxacin 750 mg p.o. daily for 2 days. 2. Prednisone 10 mg p.o. taper: 3 tabs for 2 days, then 2 tabs for 2 days, then 1 tab for 2 days. 3. Guaifenesin 600 mg p.o. b.i.d. Continued home medications: 1. Albuterol MDI 1 puff q. 4 hours p.r.n. 2. Alprazolam 1 mg p.o. daily p.r.n. 3. Ibuprofen 400 mg p.o. q. 6 hours p.r.n. 4. Labetalol 100 mg p.o. b.i.d. 5. Lamictal 600 mg p.o. daily. DISCHARGE PLAN: Ms. North will be discharged to home. Activity will be as tolerated. Diet will be regular, as tolerated. Medications are noted above. The patient has been prescribed a 2 day course of Levaquin to complete a total of 7 days of antibiotic therapy. She has additionally been prescribed a prednisone taper to complete at home. She reports that she recently had a nebulizer machine delivered to her home and does have medication for the machine. She has been advised to use this as needed. She should follow up with her PCP in 4 to 7 days. She has been instructed to return to the emergency room or nearest hospital for any worsening of symptoms, shortness of breath, lightheadedness, dizziness, chest discomfort, high fevers, chills, night sweats , loss of consciousness, or any other worrisome signs or symptoms. This is a summarized report of a complex medical history and hospital stay. For further details, please see the entire medical record. TIME SPENT: Approximately 40 minutes was spent on this discharge, greater than half of that time was spent [id number] with patient discussing discharge plans and instructions. SARAH REYES NP [id number]/[facility] #: [id number] DMITRY
== END 2018-01-31 12:00 | disposition home or self-care (01) ==
LOC: ED 01:07 → MED 03:31
PROVIDERS: ADMIT Internal Medicine; ATTEND Pediatrics
DX: J18.1 Lobar pneumonia, unspecified organism (principal); J45.901 Unspecified asthma with (acute) exacerbation; R06.03 Acute respiratory distress; R65.10 Systemic inflammatory response syndrome (SIRS) of non-infectious origin without acute organ dysfunction; R00.0 Tachycardia, unspecified; I10 Essential (primary) hypertension; D47.3 Essential (hemorrhagic) thrombocythemia; G40.909 Epilepsy, unspecified, not intractable, without status epilepticus; E87.2 Acidosis; R11.2 Nausea with vomiting, unspecified
CPT/HCPCS: 36415; 71275; 80048; 80053; 83605; 84702; 85025; 85610; 85730; 86140; 87040; 94640; 96361; 96374; 99284; A9270-GY; G0378; J1885; J7512; Q9967

== ENCOUNTER 2019-05-19 12:15 | Emergency (ER) | payer BC ==
--- OUTSIDE RECORDS SUMMARY | 2019-05-19 12:32 | XMS REPORT | Continuity of Care Document ---
:1985 External Reference #:[id number] Author Name Domi Welch DNP, RN, VISITOR INFORMATION ASSISTANT-BC (transmitted by agent of provider Samantha Sanchez) Address [address], [address] [place] [id number] Care Team Providers Name Role Phone Valeria Salguero MD - Internal Care Team Information Treasury Agent [phone] Medicine Opal Moore NP - Family Care Team Information Treasury Agent [phone] Problems Active Problems Provider Date Generalized epilepsy Albina Flynn M.D. Onset: 06/02/2014 Pneumonia due to Streptococcus Constanza Beckham MD Onset: 01/30/2018 Exacerbation of asthma Constanza Beckham MD Onset: 01/30/2018 Systemic inflammatory response syndrome (Sirs) Constanza Beckham MD Onset: 2017 of non-infectious origin without acute organ dysfunction Acidosis Constanza Beckham MD Onset: 01/30/2018 Epilepsy Sarahslime Reyes, SENIOR GRADUATE ADVISOR Onset: 01/31/2018 Essential hypertension Sarah Reyes NP Onset: 01/31/2018 Social History Type Date Description Comments Sex Unknown ETOH Use Occasionally consumes alcohol Tobacco Use Start: Unknown Patient has never smoked Recreational Drug Use Denies Drug Use Smoking Status Reviewed: 04/14/19 Patient has never smoked Exercise Type/Frequency Does not exercise Allergies, Adverse Reactions, Alerts Active Allergies Reaction Severity Comments Date Levetiracetam Moderate decline in mood 06/02/2014 Inactive Allergies NKDA 09/28/2013 Medications Active Medications SIG Qnty Indications Ordering Date Provider Cyclobenzaprine HCL take 5mg at 30tabs M54.2 Morgan Oliva, 12/30/2018 5mg night before MD Tablets bedtime M54.5 R53.83 Lamotrigine take 3 by mouth G40.209 Albina Flynn M.D. 09/12/2018 100mg Tablets twice a day Labetalol HCL one by mouth twice a Unknown 100mg Tablets day Sertraline HCL Take One and a half Unknown 100mg Tablets Tablet By Mouth AT Bedtime Immunizations Description No Information Available Vital Signs Date Vital Result Comment 04/14/2019 9:47am Height 68.75 inches 5'8.75" Weight 277.00 lb Heart Rate 68 /min BP Systolic 130 mmHg BP Diastolic 78 mmHg O2 % BldC Oximetry 99 % BMI (Body Mass Index) 41.2 kg/m2 03/27/2019 4:08pm Height 68.75 inches 5'8.75" Weight 277.00 lb Heart Rate 88 /min BP Systolic Sitting 158 mmHg BP Diastolic Sitting 96 mmHg Respiratory Rate 16 /min BMI (Body Mass Index) 41.2 kg/m2 Results Test Acquired Date Facility Test Result H/L Range Note CBC Auto 12/15/2018 [facility] White Blood 10.3 10^3/uL Normal 3.5-10.[address] [place] [address] [phone] Red Blood Count 4.40 10^6/uL Normal 3.70-4.87 Hemoglobin 12.8 g/dL Normal 12.0-16.0 Hematocrit 38 % Normal 35-47 Mean Corpuscular Volume 86 fL Normal 80-97 Mean Corpuscular Hemoglobin 29 pg Normal 27-31 Mean Corpuscular HGB Conc 34 g/dL Normal 31-36 Red Cell Distribution Width 16 % High 10-15 Platelet Count 425 10^3/uL Normal 150-450 Mean Platelet Volume 7.6 fL Normal 7.4-10.4 Abs Neutrophils 6.8 10^3/uL Normal 1.5-7.7 Abs Lymphocytes 2.5 10^3/uL Normal 1.0-4.8 Abs Monocytes 0.8 10^3/uL Normal 0-0.8 Abs Eosinophils 0.2 10^3/uL Normal 0-0.6 Abs Basophils 0.1 10^3/uL Normal 0-0.2 Abs Nucleated RBC 0.0 10^3/uL Granulocyte % 65.6 % Lymphocyte % 24.2 % Monocyte % 7.6 % Eosinophil % 2.0 % Basophil % 0.6 % Nucleated Red Blood Cells % 0.1 Comp Metabolic 12/15/2018 [facility] Sodium 138 mmol/L Normal 135-[address] [place] [address] [phone] Potassium 4.3 mmol/L Normal 3.5-5.0 Chloride 104 mmol/L Normal 101-111 Co2 Carbon Dioxide 28 mmol/L Normal 22-32 Anion Gap 6 mmol/L Normal 2-11 Glucose 84 mg/dL Normal 70-100 Blood Urea Nitrogen 12 mg/dL Normal 6-24 Creatinine 0.79 mg/dL Normal 0.51-0.95 BUN/Creatinine Ratio 15.2 Normal 8-20 Calcium 9.7 mg/dL Normal 8.6-10.3 Total Protein 7.3 g/dL Normal 6.4-8.9 Albumin 4.5 g/dL Normal 3.2-5.2 Globulin 2.8 g/dL Normal 2-4 Albumin/Globulin Ratio 1.6 Normal 1-3 Total Bilirubin 0.30 mg/dL Normal 0.2-1.0 Alkaline Phosphatase 120 U/L High 34-104 Alt 17 U/L Normal 7-52 Ast 19 U/L Normal 13-39 Egfr Non- 82.8 >60 Egfr 100.2 >60 1 Laboratory test 12/15/2018 [facility] Erythrocyte Sed 23 mm/Hr High 0-[address] [place] [address] [phone] C Reactive Protein 13.74 mg/L High <8.01 Vitamin D Total 25(Oh) 24.4 ng/mL Normal 20-50 2 Ferritin 13.4 ng/mL Normal 11-307 Iron & Iron Binding 12/15/2018 [facility] Iron 29 g/dL Low 50-[address] [place] [address] [phone] Unsaturated Iron Binding < 503 g/dL Total Iron Binding Capacity 518 g/dL High 250-450 Transferrin 370 mg/dL High 203-362 % Iron Saturation 6 % Low 15-55 Laboratory 12/15/2018 [facility] TSH (Thyroid 1.47 Normal 0.34 -5.[address] Stim Horm) mcIU/[place] [address] [phone] Folic Acid (Folate) 13.47 ng/mL >3.99 Vitamin B12 333 pg/mL Normal 180-914 3 1 Because ethnic data is not always readily available, this report includes an eGFR for both -Americans and non- Americans. The National Kidney Disease Education Program (NKDEP) does not endorse the use of the MDRD equation for patients that are not between the ages of 18 and 70, are , have extremes of body size, muscle mass, or nutritional status, or are non- or non-. According to the National Kidney Foundation, irrespective of diagnosis, the stage of the disease is based on the level of kidney function: Stage Description GFR(mL/min/1.73 m(2)) 1 Kidney damage with normal or decreased GFR 90 2 Kidney damage with mild decrease in GFR 60-89 3 Moderate decrease in GFR 30-59 4 Severe decrease in GFR 15-29 5 Kidney failure <15 (or dialysis) 2 Total 25-Hydroxyvitamin D2 and D3 (25-OH-VitD) <10 ng/mL (severe deficiency) 10-19 ng/mL (mild to moderate deficiency) 20-50 ng/mL (optimum levels) 51-80 ng/mL (increased risk of hypercalciuria) >80 ng/mL (toxicity possible) 3 Normal Range 180 to 914 Indeterminate Range 145 to 180 Deficient Range <145 Procedures Date Code Description Status 03/04/2019 28065 Sleep Study Unattended,HRT Rate,Oxygen Sat,Resp Completed Effort/Airflow Medical Devices Description No Information Available Encounters Type Date Location Provider Dx Diagnosis Office Visit 03/27/2019 [facility] G40.209 Local-rel symptc 4:00p Services Of Shabana Haywood N.P. epi w cmplx prt seiz,not ntrct,w/o stat epi Office Visit 02/25/2019 [facility] Julissa Casas, G47.9 Sleep disorder, 10:00a Sleep Services Of unspecified Shabana R53.83 Other fatigue Office Visit 12/15/2018 2:00p Rheumatology Morgan R53.83 Other fatigue Services Of Shabana Oliva MD Ccmob R79.9 Abnormal finding of blood chemistry, unspecified M54.2 Cervicalgia M25.561 Pain in right knee M25.562 Pain in left knee I10 Essential (primary) hypertension Assessments Date Code Description Provider 04/14/2019 G47.33 Obstructive sleep apnea (adult) Dmoi Welch DNP, RN, (pediatric) VISITOR INFORMATION ASSISTANT- 04/14/2019 G47.00 Insomnia, unspecified Domi Welch DNP, RN, VISITOR INFORMATION ASSISTANT- 03/27/2019 G40.209 Localization-related (focal) Kt Haywood N.P. (partial) symptomatic epilepsy 03/04/2019 G47.33 Obstructive sleep apnea (adult) Julissa Casas MD (pediatric) 02/25/2019 G47.9 Sleep disorder, unspecified Julissa Casas MD 02/25/2019 R53.83 Other fatigue Julissa Casas MD 12/15/2018 R53.83 Fatigue Morgan Oliva MD 12/15/2018 R79.9 Abnormal finding of blood Morgan Oliva MD chemistry, unspecified 12/15/2018 M54.2 Neck pain Morgan Oliva MD 12/15/2018 M25.561 Knee pain Morgan Oliva MD 12/15/2018 M25.562 Pain in left knee Morgan Oliva MD 12/15/2018 I10 Essential hypertension Morgan Oliva MD Plan of Treatment Future Appointment(s):05/27/2019 9:30 am - Domi Welch DNP, RN, [facility]- at [facility]06/26/2019 4:00 pm - Albina Flynn M.D. at [facility]04/14/2019 - Domi Welch DNP, RN, [facility]- BCG47.33 Obstructive sleep apnea (adult) (pediatric)Comments:HST AHI 15.9/hour , milan oxygen 84% (<90% 3.5 min).Follow up:6 weeksRecommendations:Sleep apnea to start PAP at 5-15 cm Review of sleep study in detail. Review of risks of untreated sleep apnea including cardiovascular events: rhythm irregularities, heart attack, stroke; gastro esophageal reflux disease (GERD); diabetes; anxiety, depression; high blood pressure; accidents (machinery and automobile) Recommendation for PAP other treatment modalities NON-PAP including oral appliance/mandibular advancement device, positional strategies , and surgery discussed. Referral for PAP device to be sent to [facility] [address] phone: [phone] Recommend nasal or nasal pillow interface due to seizure history Equipment appointment will take about 45 minutes,the DME provider will call you within 5 days to set you up for the device. If you do not hear fromthem call the Sleep Center. The mask will have a 30-day guarantee, if you have mask problems call the DME provider to have a fitting for a different mask. Need distilled water for humidifier CPAP mask and tubing Cleaning Wipe off mask daily (baby wipe-no scent, or warm water) Clean mask, tubing, filter, and water chamber weekly in mild no scent dish soap and water. Hang to dry. If you have problems with the air pressure call the sleep center and speak to a nurse. If you have any further questions, please call the [facility] Center at [phone]. If you have any sleepiness while driving you MUST avoid operating a vehicle or machinery.G47.00 Insomnia, unspecifiedRecommendations:Sleep onset Most likely related to going to bed too early Shift bedtime to midnight and keep wake time at 6:30 AM If you are sleeping through night can go to bed 15 minutes earlier x 4 nights if doing well can change bedtime to 1130 PM and keep working to encourage sleep at bedtime Review sleep hygiene sheet. Functional Status Description No Information Available Mental Status Description No Information Available Referrals Refer to Reason for Referral Status Appt Date [facility] Chronic fatigue with sleep apnea symptoms, please Sent 04/2018 evaluate and treat [address] [id number] [phone]
--- OUTSIDE RECORDS SUMMARY | 2019-05-19 12:32 | XMS REPORT | Continuity of Care Document ---
:1985 External Reference #:[id number] Author Name Kt Haywood N.P. (transmitted by agent of provider Renée Salazar) Address [address], [place] [address] Care Team Providers Name Role Phone Valeria Salguero MD - Internal Care Team Information Pad Making Machine Operator Medicine Opal Moore NP - Family Care Team Information Pad Making Machine Operator [phone] Problems Active Problems Provider Date Generalized epilepsy Albina Flynn M.D. Onset: 06/02/2014 Pneumonia due to Streptococcus Constanza Beckham MD Onset: 01/30/2018 Exacerbation of asthma Constanza Beckham MD Onset: 01/30/2018 Systemic inflammatory response syndrome (Sirs) Constanza Beckham MD Onset: 2017 of non-infectious origin without acute organ dysfunction Acidosis Constanza Beckham MD Onset: 01/30/2018 Epilepsy Sarah Eric, BLASTING CAP ASSEMBLER Onset: 01/31/2018 Essential hypertension Sarah Eric, BLASTING CAP ASSEMBLER Onset: 01/31/2018 Social History Type Date Description Comments Sex Unknown ETOH Use Occasionally consumes alcohol Tobacco Use Start: Unknown Patient has never smoked Recreational Drug Use Denies Drug Use Smoking Status Reviewed: 03/27/19 Patient has never smoked Exercise Type/Frequency Does [...] Available Vital Signs Date Vital Result Comment 03/27/2019 4:08pm Height 68.75 inches 5'8.75" Weight 277.00 lb Heart Rate 88 /min BP Systolic Sitting 158 mmHg BP Diastolic Sitting 96 mmHg Respiratory Rate 16 /min BMI (Body Mass Index) 41.2 kg/m2 02/25/2019 9:25am Height 68.75 inches 5'8.75" Weight 270.00 lb Heart Rate 110 /min BP Systolic Sitting 140 mmHg BP Diastolic Sitting 80 mmHg O2 % BldC Oximetry 97 % BMI (Body Mass Index) 40.2 kg/m2 Neck Circumference in inches 16.5 Results Test Acquired Date Facility Test Result H/L Range Note CBC Auto 12/15/2018 [facility] White Blood 10.3 10^3/uL Normal 3.5-10.[address] [place] [address] [phone] Red Blood Count 4.40 10^6/uL Normal 3.70-4.87 [...] Blood Cells % 0.1 Comp Metabolic 12/15/2018 [facility] Sodium 138 mmol/L Normal 135-[address] [place] [address] [phone] Potassium 4.3 mmol/L Normal 3.5-5.0 Chloride 104 [...] Egfr 100.2 >60 1 Laboratory test 12/15/2018 [facility] Erythrocyte Sed 23 mm/Hr High 0-[address] [place] [address] [phone] C Reactive Protein 13.74 mg/L High <8.01 Vitamin D Total 25(Oh) 24.4 ng/mL Normal 20-50 2 Ferritin 13.4 ng/mL Normal 11-307 Iron & Iron Binding 12/15/2018 [facility] Iron 29 g/dL Low 50-[address] [place] [address] [phone] Unsaturated Iron Binding < 503 g/dL Total Iron Binding Capacity 518 g/dL High 250-450 Transferrin 370 mg/dL High 203-362 % Iron Saturation 6 % Low 15-55 Laboratory 12/15/2018 [facility] TSH (Thyroid 1.47 Normal 0.34 -5.60 test finding [address] Stim Horm) mcIU/[place] [address] [phone] Folic Acid (Folate) 13.47 ng/mL >3.99 Vitamin [...] 145 to 180 Deficient Range <145 Procedures Description No Information Available Medical Devices Description No Information Available Encounters Type Date Location Provider Dx Diagnosis Office Visit 02/25/2019 Pul[facility]ology And Julissa Casas, G47.9 Sleep disorder, 10:00a Sleep Services Of unspecified Shabana R53.83 Other fatigue Office Visit 12/15/2018 2:00p Rheumatology Morgan R53.83 Other fatigue Services Of Shabana Oliva MD Ccmob R79.9 Abnormal finding of blood chemistry, unspecified M54.2 Cervicalgia M25.561 Pain in right knee M25.562 Pain in left knee I10 Essential (primary) hypertension Assessments Date Code Description Provider 03/27/2019 G40.209 Localization-related (focal) (partial) Kt Haywood N.P. symptomatic epilepsy 02/25/2019 G47.9 Sleep disorder, unspecified Julissa Casas MD 02/25/2019 R53.83 Other fatigue Julissa Casas MD 12/15/2018 R53.83 Fatigue Morgan Oliva MD 12/15/2018 R79.9 Abnormal finding of blood chemistry, Morgan Oliva MD unspecified 12/15/2018 M54.2 Neck pain Morgan Oliva MD 12/15/2018 M25.561 Knee pain Morgan Oliva MD 12/15/2018 M25.562 Pain in left knee Morgan Oliva MD 12/15/2018 I10 Essential hypertension Morgan Oliva MD Plan of Treatment Future Appointment(s):06/26/2019 4:00 pm - Albina Flynn M.D. at [facility]04/14/2019 9:45 am - Domi Welch DNP, RN, GLUE SPREADING MACHINE OPERATOR- BC at [facility]03/27/2019 - Kt Haywood, N.P.G40.209 Localization-related (focal) (partial) symptomatic epilepsyFollow up :[address] Gomezecommendations:Check you blood pressure sitting and standing Functional Status Description No Information Available Mental Status Description No Information Available Referrals Refer to Reason for Referral Status Appt Date [facility] Chronic fatigue with sleep apnea symptoms, please Sent 04/2018 evaluate and treat [address] [address] [phone]
--- NOTE | 2019-05-19 12:46 | ED ---
Psychiatric Complaint - HPI Summary HPI Summary: Pt. is a 34 y.o female who presents to the ER for mental health evaluation. Pt. reported was seen for MHE at [facility] after putting a gun to her chin over the weekend. Pt. was reportedly discharged and was at an outpt. apt. today where she was referred to [facility]. Pt. currently states she is just anxious and denies SI. Hx of seizures and HTN. Sxs are moderate in severity. No current modifying factors. - History Of Current Complaint Chief Complaint: EDMentalHealth Time Seen by Provider: 05/19/19 12:24 Hx Obtained From: Patient Hx Last Menstrual Period: 3 weeks ago - Allergies/Home Medications Allergies/Adverse Reactions: Allergies Allergy/AdvReac Type Severity Reaction Status Date / Time No Known Allergies Allergy Verified 01/30/18 01:13 Home Medications: Home Medications Labetalol HCl 100 mg PO BID 09/14/13 [History Confirmed 05/19/19] Lamotrigine (Blue) 300 mg PO BID 05/02/17 [History Confirmed 05/19/19] Ibuprofen [Motrin Ib] 400 mg PO Q6HR PRN 01/29/18 [History Confirmed 05/19/19] ALPRAZolam TAB* [Xanax TAB*] 1 mg PO BID PRN 01/30/18 [History Confirmed ] PMH/Surg Hx/FS Hx/Imm Hx Previously Healthy: Yes Endocrine/Hematology History: Denies: Hx Diabetes, Hx Thyroid Disease Cardiovascular History: Reports: Hx Hypertension - on labetalol Denies: Hx Pacemaker/ICD Respiratory History: Denies: Hx Asthma, Hx Chronic Obstructive Pulmonary Disease (COPD) GI History: Denies: Hx Ulcer History: Denies: Hx Renal Disease Sensory History: Reports: Hx Contacts or Glasses Denies: Hx Hearing Aid Opthamlomology History: Reports: Hx Contacts or Glasses Psychiatric History: Reports: Hx Anxiety, Hx Depression Denies: Hx Panic Disorder - Surgical History Surgery Procedure, Year, and Place: GALLBLADDER;. CSECTION; Infectious Disease History: No Infectious Disease History: Denies: Hx Hepatitis, Hx Human Immunodeficiency Virus (HIV), Traveled Outside the [place] in Last 30 Days - Family History Known Family History: Positive: Non-Contributory Negative: Blood Disorder - Social History Occupation: Employed Full-time Lives: With Family Alcohol Use: Occasionally Hx Substance Use: No Substance Use Type: Reports: None Hx Tobacco Use: No Smoking Status (MU): Never Smoked Tobacco Have You Smoked in the Last Year: No Review of Systems Positive: Anxious, Depressed All Other Systems Reviewed And Are Negative: Yes Physical Exam Triage Information Reviewed: Yes Vital Signs On Initial Exam: Initial Vitals Temp Pulse Resp BP Pulse Ox 97.7 F 116 18 161/109 98 05/19/19 12:16 05/19/19 12:16 05/19/19 12:16 05/19/19 12:16 05/19/19 12:16 Vital Signs Reviewed: Yes Appearance: Positive: Well-Nourished - PT. sitting up in bed, anxious. present. Head/Face: Positive: Normal Head/Face Inspection Eyes: Positive: Normal, EOMI, ALFONSO Neck: Positive: Supple Respiratory/Lung Sounds: Positive: Clear to Auscultation, Breath Sounds Present Cardiovascular: Positive: Normal, RRR Neurological: Positive: Normal, CN Intact II-III Psychiatric: Positive: Anxious Procedures - Sedation Patient Received Moderate/Deep Sedation with Procedure: No Diagnostics - Vital Signs Vital Signs Temp Pulse Resp BP Pulse Ox 05/19/19 12:16 97.7 F 116 18 161/109 98 - Laboratory Result Diagrams: 05/19/19 12:42 05/19/19 12:42 Lab Statement: Any lab studies that have been ordered have been reviewed, and results considered in the medical decision making process. Course/Dx - Course Course Of Treatment: Pt. denying SI and HI in ED today. Labs unremarkable. Pt. interviewed by Dr. Quiroz, psychiatrist, who feels pt. is safe for dc home and f.u outpt. Pt. and family comfortable to go home. Dr. Quiroz notes that fire arm was a pellet gun and gun was removed by police. Case discussed with Dr. Vasquez who is agreeable with dc. She will f.u outpt. and return to er if sxs change or worsen. Pt. dc home with . - Differential Dx/Clinical Impression Differential Diagnosis/HQI/PQRI: Positive: Anxiety, Depression Provider Diagnosis: Anxiety Discharge ED - Sign-Out/Discharge Documenting (check all that apply): Patient Departure - Discharge Plan Condition: Good Disposition: HOME Referrals: [facility] [Other] () [facility] [Other] (YOU HAVE AN APT. ON 05-20-19 AT 8;3O AM WITH HARJINDER) Kena Willis [Primary Care Provider] - - Billing Disposition and Condition Condition: GOOD Disposition: Home
[2019-05-19 12:52] LABS: Urine Appearance Clear; Urine Bilirubin Negative (Negative); Urine Blood Negative (Negative); Urine Color Yellow; Urine Glucose Negative (Negative); Urine Ketones Negative (Negative); Urine Nitrite Negative (Negative); Urine Protein Negative (Negative); Urine Specific Gravity 1.015 (1.010-1.030); Urine Urobilinogen Negative (Negative)
[2019-05-19 12:56] LABS: Urine Bacteria Absent (Absent); Urine Red Blood Cell Absent (Absent); Urine Squamous Epithelial Cell Present (Absent); Urine White Blood Cell Trace(0-5/hpf) (Absent)
[2019-05-19 13:00] LABS: ABS Basophils 0.1 10^3/ul (0-0.2); ABS Eosinophils 0.1 10^3/ul (0-0.6); ABS Lymphocytes 2.6 10^3/ul (1.0-4.8); ABS Monocytes 0.7 10^3/ul (0-0.8); ABS Neutrophils 7.3 10^3/ul (1.5-7.7); Eosinophil % 1.2 %; Hematocrit 39 % (35-47); Mean Corpuscular HGB Conc 33 g/dL (31-36); Mean Corpuscular Hemoglobin 29 pg (27-31); Mean Corpuscular Volume 87 fL (80-97); Mean Platelet Volume 7.3 fL (7.4-10.4); Platelet Count 413 10^3/uL (150-450); Red Blood Count 4.48 10^6 /uL (3.70-4.87); Red Cell Distribution Width 14 % (10-15); White Blood Count 10.7 10^3/uL (3.5-10.8)
[2019-05-19 13:18] LABS: Urine Benzodiazepine Screen Presumptive Positive (None Detect); Urine Opiates Screen None Detected (None Detect)
[2019-05-19 13:24] LABS: ALT 14 U/L (7-52); AST 16 U/L (13-39); Acetaminophen < 15 mcg/mL; Albumin 4.3 g/dL (3.2-5.2); Albumin/Globulin Ratio 1.3 (1-3); Alcohol < 10 mg/dL (<10); Alkaline Phosphatase 106 U/L (34-104); Anion Gap 9 mmol/L (2-11); BUN/Creatinine Ratio 14.9 (8-20); Blood Urea Nitrogen 13 mg/dL (6-24); CO2 Carbon Dioxide 23 mmol/L (22-32); Calcium 9.6 mg/dL (8.6-10.3); Chloride 105 mmol/L (101-111); EGFR African American 89.1 (>60); EGFR Non-African American 73.7 (>60); Globulin 3.2 g/dL (2-4); Glucose 146 mg/dL (70-100); Potassium 3.6 mmol/L (3.5-5.0); Salicylate < 2.50 mg/dL (<30); Sodium 137 mmol/L (135-145); Total Protein 7.5 g/dL (6.4-8.9)
[2019-05-19 13:38] LABS: TSH (Thyroid Stimulating Horm) 2.11 mcIU/mL (0.34-5.60)
--- NOTE | 2019-05-19 16:04 | PN ---
ED Psychiatric Progress Note Date of Service: 05/19/19 Subjective: 34 y.o. white female with a history of depression and anxiety arrived from [place] where she had endorsed recent parasuicidal gesture in pointing a pellet gun at her chin following an argument with her parents. The patient was subsequently discharged following evaluation at [facility] on Saturday (05/16). Today she contracts for safety, reports that the pellet gun was confiscated by police and the family/patient have no other weapons in the home. confirms this. Patient would like to go home and supportive of this. Names her 5 y.o. daughter and as reasons to keep living. Objective: overweight, attractive, blonde haired white female in blue scrubs; cooperative; anxious but full affect; denies SI; contracts for safety Assessment: Adjustment DO with anxiety Plan: Patient offered voluntary [facility] admission but declines, citing desire to be with family. Does not meet 9.39 criteria. Agreeable with f/u on outpatient basis. Vital Signs Temp Pulse Resp BP Pulse Ox 97.7 F 116 18 161/109 98 05/19/19 12:16 05/19/19 12:16 05/19/19 12:16 05/19/19 12:16 05/19/19 12:16 Lab Results - Entire Visit 05/19/19 05/19/19 05/19/19 12:42 12:42 12:33 WBC 10.7 RBC 4.48 Hgb 13.0 Hct 39 MCV 87 MCH 29 MCHC 33 RDW 14 Plt Count 413 MPV 7.3 L Neut % (Auto) 67.8 Lymph % (Auto) 24.0 Taliaferro % (Auto) 6.1 Eos % (Auto) 1.2 Baso % (Auto) 0.9 Absolute Neuts (auto) 7.3 Absolute Lymphs (auto) 2.6 Absolute Monos (auto) 0.7 Absolute Eos (auto) 0.1 Absolute Basos (auto) 0.1 Absolute Nucleated RBC 0.0 Nucleated RBC % 0.0 Sodium 137 Potassium 3.6 Chloride 105 Carbon Dioxide 23 Anion Gap 9 BUN 13 Creatinine 0.87 Est GFR ( Amer) 89.1 Est GFR (Non-Af Amer) 73.7 BUN/Creatinine Ratio 14.9 Glucose 146 H Calcium 9.6 Total Bilirubin 0.40 AST 16 ALT 14 Alkaline Phosphatase 106 H Total Protein 7.5 Albumin 4.3 Globulin 3.2 Albumin/Globulin Ratio 1.3 TSH 2.11 Urine Color Urine Appearance Urine pH Ur Specific Rienzi Urine Protein Urine Ketones Urine Blood Urine Nitrate Urine Bilirubin Urine Urobilinogen Ur Leukocyte Esterase Urine WBC (Auto) Urine RBC (Auto) Ur Squamous Epith Cells Urine Bacteria Urine Glucose Salicylates < 2.50 Urine Opiates Screen None detected Acetaminophen < 15 Ur Barbiturates Screen None detected Ur Phencyclidine Scrn None detected Ur Amphetamines Screen None detected U Benzodiazepines Scrn Presumptive positive A Urine Cocaine Screen None detected U Cannabinoids Screen None detected Serum Alcohol < 10 05/19/19 12:33 WBC RBC Hgb Hct MCV MCH MCHC RDW Plt Count MPV Neut % (Auto) Lymph % (Auto) Taliaferro % (Auto) Eos % (Auto) Baso % (Auto) Absolute Neuts (auto) Absolute Lymphs (auto) Absolute Monos (auto) Absolute Eos (auto) Absolute Basos (auto) Absolute Nucleated RBC Nucleated RBC % Sodium Potassium Chloride Carbon Dioxide Anion Gap BUN Creatinine Est GFR ( Amer) Est GFR (Non-Af Amer) BUN/Creatinine Ratio Glucose Calcium Total Bilirubin AST ALT Alkaline Phosphatase Total Protein Albumin Globulin Albumin/Globulin Ratio TSH Urine Color Yellow Urine Appearance Clear Urine pH 6.0 Ur Specific Rienzi 1.015 Urine Protein Negative Urine Ketones Negative Urine Blood Negative Urine Nitrate Negative Urine Bilirubin Negative Urine Urobilinogen Negative Ur Leukocyte Esterase 1+ A Urine WBC (Auto) Trace(0-5/hpf) Urine RBC (Auto) Absent Ur Squamous Epith Cells Present A Urine Bacteria Absent Urine Glucose Negative Salicylates Urine Opiates Screen Acetaminophen Ur Barbiturates Screen Ur Phencyclidine Scrn Ur Amphetamines Screen U Benzodiazepines Scrn Urine Cocaine Screen U Cannabinoids Screen Serum Alcohol
[2019-05-19 16:30] VITALS: BP 142/94
--- NOTE | 2019-05-21 05:58 | ED ---
Imaging and Labs Follow Up Follow Up Type: Labs/Cultures Labs/Culture Result: urine culture grew strep group b 75-100,000. Patient Communication/Plan: This is likely contaminant so will not treat at this time. No further action required. Provider Diagnoses: Anxiety
== END 2019-05-19 16:27 | disposition home or self-care (01) ==
LOC: ED 12:15
DX: F41.9 Anxiety disorder, unspecified (principal); I10 Essential (primary) hypertension; F32.9 Major depressive disorder, single episode, unspecified; Z79.899 Other long term (current) drug therapy
CPT/HCPCS: 36415; 80053; 80307; 80320; 80329; 81003; 81015; 84443; 85025; 87077; 87086; 99285; G0480

== ENCOUNTER 2022-08-20 17:12 | Inpatient (IN) ==
[2022-08-20 17:32] LABS: ABS Lymphocytes 1.2 10^3/uL (1.0-4.8); ABS Monocytes 0.1 10^3/uL (0.0-0.9); ABS Neutrophils 6.9 10^3/uL (1.5-7.6); ABS Nucleated RBC 0.01 10^3/ul; Eosinophil % 0.1 %; Hematocrit 39.5 % (35-45); Hemoglobin 13.5 g/dL (11.5-14.3); Lymphocyte % 14.3 %; Mean Corpuscular Hemoglobin 30.9 pg (27-33); Mean Corpuscular Hgb Conc 34.2 g/dL (31-36); Mean Corpuscular Volume 90.2 fL (80-97); Mean Platelet Volume 6.7 fL (7.5-11.2); Nucleated Red Blood Cells % 0.1 /100 WBC (0.0-0.4); Platelet Count 359 10^3/uL (150-450); Red Blood Count 4.38 10^6/uL (3.63-4.92); Red Cell Distribution Width 15.2 % (12-17); White Blood Count 8.3 10^3/uL (3.8-11.8)
[2022-08-20 17:49] LABS: ALT 46 U/L (7-52); AST 51 U/L (13-39); Albumin 4.3 g/dL (3.2-5.2); Albumin/Globulin Ratio 1.2 (1-3); Alkaline Phosphatase 99 U/L (35-149); Anion Gap 12 mmol/L (2-16); Blood Urea Nitrogen 14 mg/dL (6-24); CO2 Carbon Dioxide 25 mmol/L (22-32); Calcium 9.5 mg/dL (8.6-10.3); Chloride 95 mmol/L (101-111); Creatinine, Serum 0.97 mg/dL (0.51-0.95); Globulin 3.5 g/dL (2-4); Glucose 127 mg/dL (70-100); Magnesium 1.8 mg/dL (1.9-2.7); Potassium 3.7 mmol/L (3.5-5.0); Sodium 132 mmol/L (135-145); Total Protein 7.8 g/dL (6.4-8.9); eGFR CKD-EPI 76.2 (>60)
[2022-08-20 17:55] LABS: HCG Pregnancy < 0.60 mIU/mL; High Sens Troponin Baseline 4 pg/mL (<15)
[2022-08-20 18:04] LABS: TSH Ultra Thyroid Stim Horm 0.87 mcIU/mL (0.34-5.60)
[2022-08-20 18:58] LABS: High Sensitivity Troponin 1 Hr 4 pg/mL (<15)
[2022-08-20] MEDS ORDERED: Iohexol 350 (CONTRAST) 500 ML MDV IV ONE (20:17)
[2022-08-20] MEDS ORDERED: Heparin DRIP 25,000 UNITS BAG 25,000 UNITS/500 ML BAG IV SCH (21:30)
[2022-08-20 21:39] LABS: ABS Lymphocytes 1.4 10^3/uL (1.0-4.8); ABS Monocytes 0.2 10^3/uL (0.0-0.9); ABS Neutrophils 5.5 10^3/uL (1.5-7.6); ABS Nucleated RBC 0.01 10^3/ul; Eosinophil % 0.1 %; Hematocrit 38.3 % (35-45); Hemoglobin 13.1 g/dL (11.5-14.3); Lymphocyte % 19.8 %; Mean Corpuscular Hemoglobin 31.4 pg (27-33); Mean Corpuscular Hgb Conc 34.3 g/dL (31-36); Mean Corpuscular Volume 91.7 fL (80-97); Mean Platelet Volume 6.6 fL (7.5-11.2); Nucleated Red Blood Cells % 0.1 /100 WBC (0.0-0.4); Platelet Count 337 10^3/uL (150-450); Red Blood Count 4.17 10^6/uL (3.63-4.92); Red Cell Distribution Width 15.3 % (12-17); White Blood Count 7.1 10^3/uL (3.8-11.8)
[2022-08-20] MEDS ORDERED: Heparin 5000 UNITS/ML 1 mL VIAL IV SCH (22:00)
[2022-08-20 22:03] LABS: Creatinine, Serum 0.95 mg/dL (0.51-0.95); eGFR CKD-EPI 78.2 (>60)
[2022-08-20] MEDS ORDERED: Acetaminophen IV 1 GM/100ML 1,000 MG/100 ML BAG IV ONE (23:21)
[2022-08-21] MEDS ORDERED: Magnesium Sulfate 2 gm BAG 2 GM/50 ML BAG IVPB ONE (01:58)
[2022-08-21 05:32] LABS: ABS Monocytes 0.1 10^3/uL (0.0-0.9); ABS Neutrophils 3.9 10^3/uL (1.5-7.6); ABS Nucleated RBC 0.02 10^3/ul; Eosinophil % 0.1 %; Hematocrit 37.1 % (35-45); Hemoglobin 12.9 g/dL (11.5-14.3); Lymphocyte % 33.4 %; Mean Corpuscular Hemoglobin 31.2 pg (27-33); Mean Corpuscular Hgb Conc 34.8 g/dL (31-36); Mean Corpuscular Volume 89.8 fL (80-97); Mean Platelet Volume 6.6 fL (7.5-11.2); Nucleated Red Blood Cells % 0.3 /100 WBC (0.0-0.4); Platelet Count 310 10^3/uL (150-450); Red Blood Count 4.13 10^6/uL (3.63-4.92); Red Cell Distribution Width 15.2 % (12-17); White Blood Count 6.1 10^3/uL (3.8-11.8)
[2022-08-21 05:37] LABS: INR 1.15 (0.88-1.18)
[2022-08-21 06:16] LABS: Albumin/Globulin Ratio 1.2 (1-3); Calcium 9.1 mg/dL (8.6-10.3); Creatinine, Serum 0.87 mg/dL (0.51-0.95); Globulin 3.4 g/dL (2-4); Magnesium 2.8 mg/dL (1.9-2.7); Potassium 3.5 mmol/L (3.5-5.0); Total Bilirubin 0.7 mg/dL (0.2-1.0); Total Protein 7.4 g/dL (6.4-8.9); eGFR CKD-EPI 86.9 (>60)
[2022-08-21] MEDS ORDERED: Desvenlafaxine 50 mg TAB ER (NF) PO SCH (09:00)
[2022-08-21] MEDS ORDERED: NF: DAPAGLIFLOZIN 10 MG TAB (NF) PO SCH (09:00)
[2022-08-21 15:18] VITALS: BP 119/85
== END 2022-08-21 15:17 | disposition home or self-care (01) | DRG 134 ==
LOC: ED 17:12 → EDHOLD 22:12 → SUATTDRO 22:12 → EDHOLD 08-21 15:16
PROVIDERS: ADMIT Hospitalist; ATTEND Internal Medicine

== ENCOUNTER 2023-09-25 06:01 | Inpatient (IN) ==
[~2023-09-25 06:01] MED LIST: Metoclopramide 5 MG/ML VIAL (10 mg) IV PRN; NS 0.45% 1000 ml BAG 1,000 ML IV SCH; Naloxone 0.4 mg VIAL 0.4 mg/ml 1 ml VIAL IV PRN; Ondansetron 4 mg VIAL 2 MG/ML 2 ml VIAL IV PRN
[2023-09-25] MEDS ORDERED: Heparin 5000 UNITS/ML 1 mL VIAL ONE (06:19)
[2023-09-25] MEDS ORDERED: Scopolamine 1 mg/72hr PATCH ONE (06:19)
[2023-09-25] MEDS: Lactated Ringers 1000 ml BAG 1,000 ML IV SCH ×2 (06:31→11:31)
[2023-09-25] MEDS: Scopolamine 1 mg/72hr PATCH TRANSDERM ONE (06:31)
[2023-09-25] MEDS: Buffered Lidocaine 1% SYRIN 1 ml INTRADERM ONE (06:32)
[2023-09-25 06:42] LABS: Rapid COVID-19 Molecular Undetected (Undetected)
[2023-09-25] MEDS ORDERED: Methylene Blue 1% (ANTIDOTE) 10 MG/ML 10 ML SDV VIAL IVPB ONE (06:50)
[2023-09-25] MEDS ORDERED: Bupivacaine 0.25% EPI 200,000 30 ML SDV ONE (06:51)
[2023-09-25] MEDS ORDERED: Midazolam 2 mg/2 ml VIAL 1 mg/ml 2 ml VIAL (2 mg) ONE (07:15)
[2023-09-25] MEDS ORDERED: Rocuronium 50 mg VIAL 10 mg/ml 5 ml VIAL (50 mg) ONE (07:15)
[2023-09-25] MEDS ORDERED: Lidocaine 2% PF 5 ML VIAL ONE (07:17)
[2023-09-25] MEDS ORDERED: fentaNYL 100 mcg/2 ml 50 MCG/ML VIAL ONE ×3 (07:17→11:17)
[2023-09-25] MEDS ORDERED: Propofol 10 MG/ML 20 ML BTL ONE (07:17)
[2023-09-25] MEDS ORDERED: HYDROmorphone 0.5 MG/0.5 ML SYRINGE ONE ×3 (08:04→09:49)
[2023-09-25] MEDS ORDERED: Dexamethasone IV 4 MG/ML VIAL 1 ml VIAL ONE (08:59)
[2023-09-25] MEDS ORDERED: Ondansetron 4 mg VIAL 2 MG/ML 2 ml VIAL ONE (08:59)
[2023-09-25] MEDS: fentaNYL 100 mcg/2 ml 50 MCG/ML VIAL IV PRN (10:36)
[2023-09-25] MEDS ORDERED: HYDROcodone/ACET. 7.5/325 LIQ 15 ML UDC PO PRN (10:51)
[2023-09-25] MEDS ORDERED: Ondansetron 4 mg VIAL 2 MG/ML 2 ml VIAL IV PRN (10:51)
[2023-09-25] MEDS: ceFAZolin *3* GM in NS PREMIX 3 GM/100 ML BAG IV ONE (11:31)
[2023-09-25] MEDS: Acetaminophen IV 1 GM/100ML 1,000 MG/100 ML BAG IV ONE (11:31)
[2023-09-25] MEDS: HYDROmorphone 0.5 MG/0.5 ML SYRINGE IV SLOW PU PRN (12:47)
[2023-09-25] MEDS: Heparin 5000 UNITS/ML 1 mL VIAL SUBCUT SCH (14:01)
[2023-09-25] MEDS: Acetaminophen IV 1 GM/100ML 1,000 MG/100 ML BAG IV SCH (14:01)
[2023-09-25] MEDS: HYDROmorphone 1 MG/1 ML SYRINGE IV SLOW PU PRN (15:23)
[2023-09-25] MEDS: Famotidine IV 10 MG/ML 2 ml VIAL (20 mg) IV SLOW PU SCH (21:29)
[2023-09-26] MEDS: D5W 1/2 NS KCl 20 meq 1000 ml 1,000 ML IV SCH (11:10)
[2023-09-26] MEDS: HYDROcodone/ACET. 7.5/325 LIQ 15 ML UDC PO PRN (11:38)
[2023-09-27 09:38] VITALS: BP 128/85
== END 2023-09-27 13:00 | disposition home or self-care (01) | DRG 403 ==
LOC: AA 06:01 → SSU 10:37
PROVIDERS: ADMIT Surgery; ATTEND Surgery

== ENCOUNTER 2023-11-04 15:17 | Observation (INO) ==
[2023-11-04] MEDS: Iodixanol (CONTRAST) 320 MG/ML 100 ML SDV IV ONE (15:42)
[2023-11-04 15:52] LABS: ABS Eosinophils 0.1 10^3/uL (0.0-0.5); ABS Monocytes 0.3 10^3/uL (0.0-0.9); ABS Neutrophils 2.8 10^3/uL (1.5-7.6); ABS Nucleated RBC 0.01 10^3/ul; Eosinophil % 2.1 %; Hemoglobin 10.6 g/dL (11.5-14.3); Lymphocyte % 38.7 %; Mean Corpuscular Hemoglobin 28.3 pg (27-33); Mean Corpuscular Hgb Conc 32.2 g/dL (31-36); Mean Platelet Volume 6.7 fL (7.5-11.2); Nucleated Red Blood Cells % 0.2 %/100WBC (0.0-0.8); Platelet Count 583 10^3/uL (150-450); Red Blood Count 3.75 10^6/uL (3.63-4.92); Red Cell Distribution Width 18.5 % (12-17); White Blood Count 5.2 10^3/uL (3.8-11.8)
[2023-11-04] MEDS ORDERED: Lorazepam PYXIS KEY PRN ×2 (15:58→17:44)
[2023-11-04 16:02] LABS: Activated Partial Thrombo Time 46.1 seconds (26.0-38.0); INR 1.26 (0.83-1.13)
[2023-11-04] MEDS: LORazepam 2 mg VIAL 1 ml IV PUSH ONE (16:02)
[2023-11-04 16:53] LABS: Albumin 3.7 g/dL (3.2-5.2); Albumin/Globulin Ratio 1.2 (1-3); Calcium 9.2 mg/dL (8.6-10.3); Creatinine, Serum 0.85 mg/dL (0.51-0.95); Globulin 3.2 g/dL (2-4); HDL Cholesterol 33.6 mg/dL; Indirect Bilirubin 0.3 mg/dL (0.3-1.0); Potassium 4.5 mmol/L (3.5-5.0); Total Bilirubin 0.3 mg/dL (0.2-1.0); Total Protein 6.9 g/dL (6.4-8.9); eGFR CKD-EPI 88.8 (>60)
[2023-11-04] MEDS: levETIRAcetam 1000MG IVPREMIX 1,000 MG/100 ML BAG IVPB ONE (17:02)
[2023-11-04] MEDS: Metoclopramide 5 MG/ML VIAL (10 mg) IV SLOW PU ONE (17:03)
[2023-11-04] MEDS: Thiamine 100 MG/ML 2 ml VIAL 100 MG, Folic Acid IV 1 MG, Multiple Vitamin IV ADULT 10 M... IV ONE (17:24)
[2023-11-04] MEDS ORDERED: LORazepam 2 mg VIAL 1 ml IV PUSH PRN (17:44)
[2023-11-04] MEDS: levETIRAcetam 500 MG IVPREMIX 500 MG/100 ML BAG IV SCH (21:40)
[2023-11-04 23:38] LABS: Ferritin 44.8 ng/mL (11-307)
[2023-11-05 06:09] LABS: ABS Eosinophils 0.1 10^3/uL (0.0-0.5); ABS Lymphocytes 1.1 10^3/uL (1.0-4.8); ABS Monocytes 0.2 10^3/uL (0.0-0.9); ABS Neutrophils 1.7 10^3/uL (1.5-7.6); ABS Nucleated RBC 0.01 10^3/ul; Eosinophil % 2.7 %; Hematocrit 31.2 % (35-45); Hemoglobin 9.9 g/dL (11.5-14.3); Lymphocyte % 35.7 %; Mean Corpuscular Hgb Conc 31.7 g/dL (31-36); Mean Corpuscular Volume 88.1 fL (80-97); Mean Platelet Volume 6.6 fL (7.5-11.2); Nucleated Red Blood Cells % 0.4 %/100WBC (0.0-0.8); Platelet Count 483 10^3/uL (150-450); Red Blood Count 3.55 10^6/uL (3.63-4.92); Red Cell Distribution Width 18.9 % (12-17); White Blood Count 3.1 10^3/uL (3.8-11.8)
[2023-11-05 06:18] LABS: Activated Partial Thrombo Time 46.9 seconds (26.0-38.0); INR 1.27 (0.83-1.13)
[2023-11-05 07:10] LABS: ALT 13 U/L (7-52); AST 19 U/L (13-39); Albumin 3.2 g/dL (3.2-5.2); Albumin/Globulin Ratio 1.1 (1-3); Alkaline Phosphatase 77 U/L (35-149); Anion Gap 8 mmol/L (2-16); Blood Urea Nitrogen 7 mg/dL (6-24); CO2 Carbon Dioxide 27 mmol/L (22-32); Calcium 8.7 mg/dL (8.6-10.3); Chloride 107 mmol/L (101-111); Creatinine, Serum 0.82 mg/dL (0.51-0.95); Glucose 68 mg/dL (70-100); Magnesium 2.1 mg/dL (1.9-2.7); Phosphorus 3.8 mg/dL (2.5-5.0); Potassium 4.1 mmol/L (3.5-5.0); Sodium 142 mmol/L (135-145); Total Bilirubin 0.3 mg/dL (0.2-1.0); Total Protein 6.2 g/dL (6.4-8.9); eGFR CKD-EPI 92.7 (>60)
[2023-11-05] MEDS: Isosorbide Mononit ER 60mg TAB PO SCH (08:59)
[2023-11-05] MEDS ORDERED: LAMOTRIGINE 300 MG PO SCH (09:00)
[2023-11-05 09:01] LABS: Folate > 20.00 ng/mL (5.90-24.80)
[2023-11-05 09:02] LABS: Vitamin B12 305 pg/mL (180-914)
[2023-11-05] MEDS: Ondansetron 4 mg VIAL 2 MG/ML 2 ml VIAL IV PRN (10:45)
[2023-11-05] MEDS ORDERED: Sulfur Hexaflouride MICROSPHR 25 MG VIAL ONE (14:24)
[2023-11-05] MEDS: Sulfur Hexaflouride MICROSPHR 25 MG VIAL IV ONE (14:27)
[2023-11-06] MEDS ORDERED: LORazepam 2 mg VIAL 1 ml IV PUSH PRN (07:07)
[2023-11-06] MEDS ORDERED: Lorazepam PYXIS KEY PRN (07:16)
[2023-11-06 08:05] LABS: ABS Eosinophils 0.1 10^3/uL (0.0-0.5); ABS Lymphocytes 1.3 10^3/uL (1.0-4.8); ABS Monocytes 0.3 10^3/uL (0.0-0.9); ABS Neutrophils 1.6 10^3/uL (1.5-7.6); ABS Nucleated RBC 0.01 10^3/ul; Eosinophil % 2.3 %; Hematocrit 29.4 % (35-45); Hemoglobin 9.6 g/dL (11.5-14.3); Lymphocyte % 39.4 %; Mean Corpuscular Hgb Conc 32.8 g/dL (31-36); Mean Corpuscular Volume 88.4 fL (80-97); Mean Platelet Volume 6.7 fL (7.5-11.2); Nucleated Red Blood Cells % 0.2 %/100WBC (0.0-0.8); Platelet Count 459 10^3/uL (150-450); Red Blood Count 3.32 10^6/uL (3.63-4.92); Red Cell Distribution Width 19.2 % (12-17); White Blood Count 3.2 10^3/uL (3.8-11.8)
[2023-11-06] MEDS: CMC:Lamotrigine XR 300 mg TAB (NF) PO SCH (09:39)
[2023-11-06] MEDS ORDERED: Pantoprazole VIAL 40 MG VIAL IV SCH (19:00)
[2023-11-06] MEDS: Pantoprazole VIAL 40 MG VIAL IV SCH (21:52)
[2023-11-06] MEDS: Lansoprazole SUSP ORALSYR 3 MG/ML PO SCH (22:13)
[2023-11-07 05:22] LABS: ABS Eosinophils 0.1 10^3/uL (0.0-0.5); ABS Lymphocytes 1.3 10^3/uL (1.0-4.8); ABS Monocytes 0.3 10^3/uL (0.0-0.9); ABS Neutrophils 1.4 10^3/uL (1.5-7.6); Eosinophil % 2.2 %; Hematocrit 29.7 % (35-45); Lymphocyte % 42.9 %; Mean Corpuscular Hemoglobin 29.4 pg (27-33); Mean Corpuscular Hgb Conc 33.6 g/dL (31-36); Mean Corpuscular Volume 87.7 fL (80-97); Mean Platelet Volume 6.5 fL (7.5-11.2); Nucleated Red Blood Cells % 0.1 %/100WBC (0.0-0.8); Platelet Count 441 10^3/uL (150-450); Red Blood Count 3.39 10^6/uL (3.63-4.92); Red Cell Distribution Width 19.2 % (12-17); White Blood Count 3.1 10^3/uL (3.8-11.8)
[2023-11-07 06:37] LABS: Calcium 9.2 mg/dL (8.6-10.3); Creatinine, Serum 0.81 mg/dL (0.51-0.95); eGFR CKD-EPI 94.1 (>60)
[2023-11-07] MEDS ORDERED: Midazolam 10 mg/10 ml VIAL 1 mg/ml 10 ml VIAL (10 mg) ONE (10:36)
[2023-11-07] MEDS ORDERED: fentaNYL 100 mcg/2 ml 50 MCG/ML VIAL ONE (10:36)
[2023-11-07] MEDS ORDERED: Lactated Ringers 1000 ml BAG 1,000 ML IV ONE (10:57)
[2023-11-07] MEDS ORDERED: Ondansetron 4 mg VIAL 2 MG/ML 2 ml VIAL IV ONE (10:57)
[2023-11-07] MEDS ORDERED: Flumazenil 0.5 mg/5 ml 0.1 MG/ML 5 ml VIAL IV PRN (10:57)
[2023-11-07] MEDS ORDERED: fentaNYL 100 mcg/2 ml 50 MCG/ML VIAL IV SLOW PU ONE (10:57)
[2023-11-07] MEDS ORDERED: Naloxone 0.4 mg VIAL 0.4 mg/ml 1 ml VIAL IV PUSH PRN (10:57)
[2023-11-07] MEDS ORDERED: Midazolam 10 mg/10 ml VIAL 1 mg/ml 10 ml VIAL (10 mg) IV SLOW PU ONE (10:57)
[2023-11-07] MEDS ORDERED: Lidocaine 2% JELLY 6 ML Topical TOPICAL ONE (10:57)
[2023-11-07 12:24] VITALS: BP 121/81
== END 2023-11-07 16:50 | disposition home or self-care (01) ==
LOC: EDHOLD 15:17 → ED 15:17 → SUATTDRO 17:46 → MEDTELE 21:02
PROVIDERS: ADMIT Student in an Organized Health Care Education/Training Program; ATTEND Internal Medicine

== ENCOUNTER 2023-11-14 19:28 | Observation (INO) ==
[2023-11-14] MEDS: LORazepam 2 mg VIAL 1 ml IV ONE (20:23)
[2023-11-14 20:39] LABS: ABS Lymphocytes 0.8 10^3/uL (1.0-4.8); ABS Monocytes 0.5 10^3/uL (0.0-0.9); ABS Neutrophils 6.3 10^3/uL (1.5-7.6); ABS Nucleated RBC 0.01 10^3/ul; Eosinophil % 0.6 %; Hematocrit 35.4 % (35-45); Hemoglobin 11.4 g/dL (11.5-14.3); Mean Corpuscular Hemoglobin 28.7 pg (27-33); Mean Corpuscular Hgb Conc 32.2 g/dL (31-36); Mean Corpuscular Volume 89.1 fL (80-97); Mean Platelet Volume 6.9 fL (7.5-11.2); Nucleated Red Blood Cells % 0.1 %/100WBC (0.0-0.8); Platelet Count 398 10^3/uL (150-450); Red Blood Count 3.97 10^6/uL (3.63-4.92); Red Cell Distribution Width 19.9 % (12-17); White Blood Count 7.6 10^3/uL (3.8-11.8)
[2023-11-14 20:51] LABS: INR 1.45 (0.85-1.14)
[2023-11-14 21:26] LABS: Albumin/Globulin Ratio 1.1 (1-3); Calcium 9.6 mg/dL (8.6-10.3); Creatinine, Serum 0.94 mg/dL (0.51-0.95); Globulin 3.5 g/dL (2-4); Potassium 4.8 mmol/L (3.5-5.0); Total Bilirubin 0.4 mg/dL (0.2-1.0); Total Protein 7.5 g/dL (6.4-8.9); eGFR CKD-EPI 78.7 (>60)
[2023-11-14 23:38] LABS: Urine Appearance Clear; Urine Bacteria 1+ /HPF (Absent); Urine Bilirubin Negative (Negative); Urine Blood Trace (Negative); Urine Color Yellow; Urine Glucose 4+ (>=1000 mg/dL) (Negative); Urine Ketones 2+ (Negative); Urine Nitrite Negative (Negative); Urine Protein Trace (Negative); Urine Red Blood Cell Absent /HPF (0-Trace); Urine Squamous Epithelial Cell Present /HPF (Absent); Urine Urobilinogen Negative (Negative); Urine White Blood Cell Trace(0-5/hpf) /HPF (0-Trace)
[2023-11-15 00:59] LABS: Urine Benzodiazepine Screen None Detected (None Detect); Urine Buprenorphine Screen None Detected (None Detect); Urine Cannabinoids Screen None Detected (None Detect); Urine Fentanyl Screen None Detected (None Detect); Urine Hydrocodone Screen None Detected (None Detect); Urine Opiates Screen None Detected (None Detect)
[2023-11-15] MEDS ORDERED: Ondansetron ODT 4 mg TAB 4 MG TAB PO PRN (01:30)
[2023-11-15] MEDS ORDERED: LORazepam 2 mg VIAL 1 ml IV PUSH PRN (03:46)
[2023-11-15] MEDS ORDERED: Lorazepam PYXIS KEY PRN (03:46)
[2023-11-15 06:38] LABS: ABS Lymphocytes 1.1 10^3/uL (1.0-4.8); ABS Monocytes 0.3 10^3/uL (0.0-0.9); ABS Neutrophils 2.8 10^3/uL (1.5-7.6); Eosinophil % 0.9 %; Hematocrit 34.4 % (35-45); Hemoglobin 11.4 g/dL (11.5-14.3); Lymphocyte % 25.4 %; Mean Corpuscular Hemoglobin 29.4 pg (27-33); Mean Corpuscular Hgb Conc 33.2 g/dL (31-36); Mean Corpuscular Volume 88.5 fL (80-97); Mean Platelet Volume 6.8 fL (7.5-11.2); Nucleated Red Blood Cells % 0.1 %/100WBC (0.0-0.8); Platelet Count 398 10^3/uL (150-450); Red Blood Count 3.88 10^6/uL (3.63-4.92); Red Cell Distribution Width 19.9 % (12-17); White Blood Count 4.3 10^3/uL (3.8-11.8)
[2023-11-15 07:05] LABS: Calcium 9.7 mg/dL (8.6-10.3); Creatinine, Serum 0.98 mg/dL (0.51-0.95); Potassium 4.7 mmol/L (3.5-5.0); eGFR CKD-EPI 74.8 (>60)
[2023-11-15] MEDS: CMCS: DAPAGLIFLOZIN 10 MG TAB (NF) PO SCH (08:51)
[2023-11-15] MEDS: Isosorbide Mononit ER 60mg TAB PO SCH (08:51)
[2023-11-15] MEDS: METHOTREXATE 25 MG/ML SCH ×2 (14:13→16:22)
[2023-11-15 18:10] VITALS: BP 130/93
[2023-11-15] MEDS ORDERED: Potassium Chlor 10 meq TAB PO SCH (21:00)
[2023-11-15] MEDS ORDERED: CMCS: Desvenlafaxine 50 mg TAB ER (NF) PO SCH (21:00)
[2023-11-17 01:29] LABS: Lacosamide 2.8 mcg/mL (1.0 - 10.0)
== END 2023-11-15 18:00 | disposition home or self-care (01) ==
LOC: EDHOLD 19:28 → ED 19:28 → SUATTDRO 11-15 00:01 → MED 11-15 13:45
PROVIDERS: ADMIT Hospitalist; ATTEND Student in an Organized Health Care Education/Training Program